=== PATIENT | male | born 1955 | race Caucasian/White ===

== ENCOUNTER → 2017-08-04 | Outpatient (CLI) | payer OTHER ==
[2017-08-05 14:04] LABS: Protein C (Activity) 111 % (70 - 130); Protein S (Activity) 98 % (65 - 140)
== END | disposition home or self-care (01) ==
LOC: LABWHC1 14:36
PROVIDERS: ATTEND Internal Medicine Critical Care Medicine
DX: I26.99 Other pulmonary embolism without acute cor pulmonale (principal)
CPT/HCPCS: 36415; 81240; 81241; 85301; 85303; 85306; 85613; 85730; 86147

== ENCOUNTER → 2020-08-02 | Outpatient (CLI) | payer OTHER ==
--- NOTE | 2020-08-03 03:09 | MR ---
EXAMINATION TYPE: MR knee LT wo con DATE OF EXAM: 08/02/2020 COMPARISON: None HISTORY: Lt knee pain x 2 months Multiplanar multiecho imaging of the left knee was performed without contrast. There is moderate knee joint effusion. The anterior and posterior cruciate ligaments are intact. Ther e is some mild increased signal within the posterior cruciate ligament consistent with partial tear. There is narrowing of the medial joint space. There is significant thinning of the medial meniscus. T here is complex tear of the posterior horn of the medial meniscus. There is abnormal increased signal on the T2 images on both sides of the medial joint space consisten t with bone edema and bone bruise. The patella is intact. There is horizontal tear in the anterior po sterior horns of the lateral meniscus. There is subcutaneous edema around the knee. There is poplitea l cyst that measures 2.5 x 1.3 cm. The collateral ligaments are intact. IMPRESSION: Complex tear of the anterior and posterior horns of the medial meniscus with medial joint space narro wing and osteoarthritis. Bone bruise on both sides of the medial joint space. Subcutaneous edema arou nd the knee joint. Knee joint effusion and popliteal cyst. Partial tear of the posterior cruciate ligament. Horizontal tear of the entire lateral meniscus.
== END | disposition home or self-care (01) ==
LOC: RADMRIMAIN 18:13
PROVIDERS: ATTEND Orthopaedic Surgery
DX: S83.232A Complex tear of medial meniscus, current injury, left knee, initial encounter (principal); M17.12 Unilateral primary osteoarthritis, left knee; S80.02XA Contusion of left knee, initial encounter; M25.862 Other specified joint disorders, left knee; M71.22 Synovial cyst of popliteal space [Baker], left knee; S83.282A Other tear of lateral meniscus, current injury, left knee, initial encounter; S83.522A Sprain of posterior cruciate ligament of left knee, initial encounter

== ENCOUNTER 2020-10-18 23:48 | Inpatient (IN) | payer OTHER ==
--- NOTE | 2020-10-19 00:26 | ED ---
General Adult HPI - General Chief complaint: Extremity Problem,Nontraumatic Stated complaint: Blood clots Time Seen by Provider: 10/18/20 23:52 Source: patient Mode of arrival: EMS Limitations: no limitations - History of Present Illness Initial comments: This patient is a 64-year-old man who arrives here as a transfer from [facility]. The patient had gone to the other facility after he noticed that he was feeling short of breath when he went to go to physical therapy appointment around 11 AM today. The patient states she is feeling abno rmally short of breath so he went to the hospital and there was found to have left leg DVT and bilateral pulmonary embolism. Patient relates that over the prior day he had had a what felt like a charley horse in his left calf. He had tried stretching it but didn't really have much relief. The patient does relate that he had pulmonary embolus around 4-5 years ago and had taken 6 months of anticoagulation without further complication and then that was stopped. Currently the patient states that his breathing seems okay. Patient denies chest pain but states that it does occasionally feel like he has to cough. No hemoptysis. No palpitations noted. Onset/Timin -: hour(s) Location: left, lower extremity Quality: dull Consistency: constant Improves with: none Worsens with: movement Associated Symptoms: cough, shortness of breath - Related Data Home Medications Medication Instructions Recorded Confirmed lisinopriL [Zestril] 10 mg PO DAILY 07/06/16 07/11/16 Albuterol Sulfate [Proventil Hfa] 2 puff INHALATION RT-Q4H PRN MDD 07/11/16 07/11/16 +SCHEDULED DOSES Albuterol Sulfate [Proventil Hfa] 2 puff INHALATION RT-Q6H 07/11/16 07/11/16 Previous Rx's Medication Instructions Recorded Budesonide-Formot 160-4.5 Mcg 2 puff INHALATION RT-BID #1 inh 07/08/16 [Symbicort 160-4.5 Mcg Inhaler] Enoxaparin [Lovenox] 120 mg SQ Q12H #10 syringe 07/15/16 ALPRAZolam [Xanax] 0.25 mg PO TID PRN #20 tab 07/17/16 HYDROcodone/APAP 5-325MG [[place] 1 each PO Q6H PRN #20 tab 07/17/16 5-325] Multivitamins, Thera [Multivitamin 1 each PO DAILY@1200 #30 tab 07/17/16 (formulary)] Warfarin [Coumadin] 10 mg PO DAILY #7 tab 07/17/16 methylPREDNISolone Dose Pack 4 mg PO DIRECTED #1 package 07/17/16 [Medrol Dose Pack] Allergies Allergy/AdvReac Type Severity Reaction Status Date / Time amoxicillin Allergy Rash/Hives Verified 10/19/20 00:06 iodine Allergy Anaphylaxis Verified 07/11/16 19:20 Review of Systems ROS Statement: Those systems with pertinent positive or pertinent negative responses have been documented in the HPI. ROS Other: All systems not noted in ROS Statement are negative. Constitutional: Denies: fever, chills, weakness ENT: Denies: congestion Respiratory: Reports: as per HPI, cough, dyspnea. Denies: wheezes, hemoptysis Cardiovascular: Reports: dyspnea on exertion. Denies: chest pain, palpitations, orthopnea, edema, syncope Gastrointestinal: Denies: abdominal pain, nausea, vomiting Genitourinary: Denies: dysuria, hematuria Musculoskeletal: Reports: as per HPI, myalgia (Left calf). Denies: back pain Skin: Reports: rash (Patient has bilateral lower extremity rash believed to be reaction to antibiotics he had taken for dental pain) Neurological: Denies: headache, weakness, numbness, paresthesias Hematological/Lymphatic: Denies: easy bleeding Past Medical History Past Medical History: Deep Vein Thrombosis (DVT), Hypertension, Rheumatoid Arthritis (RA) Additional Past Medical History / Comment(s): Recent admission for left lower lobe pneumonia, rheumatoid arthritis, hypertension, obesity, pulmonary embolisms, prostate CA, UTI, herniated dics History of Any Multi-Drug Resistant Organisms: None Reported Past Surgical History: Appendectomy, Cholecystectomy, Tonsillectomy Additional Past Surgical History / Comment(s): 2010 colonscopy w/polyps removed Past Anesthesia/Blood Transfusion Reactions: No Reported Reaction Past Psychological History: No Psychological Hx Reported Smoking Status: Never smoker Past Alcohol Use History: Occasional Past Drug Use History: None Reported - Past Family History Father Family Medical History: No Reported History General Exam Limitations: no limitations General appearance: alert, in no apparent distress Head exam: Present: atraumatic, normocephalic Eye exam: Present: normal appearance. Absent: scleral icterus, conjunctival injection Neck exam: Present: normal inspection, full ROM Respiratory exam: Present: normal lung sounds bilaterally. Absent: respiratory distress, wheezes, rales, rhonchi, stridor, accessory muscle use, decreased breath sounds, prolonged expiratory Cardiovascular Exam: Present: regular rate, normal rhythm, normal heart sounds. Absent: systolic murmur, diastolic murmur, rubs, gallop GI/Abdominal exam: Present: soft. Absent: distended, tenderness, guarding, rebound, rigid, mass, pulsatile mass, hernia Extremities exam: Present: normal inspection, normal capillary refill, pedal edema (Left calf is minimally enlarged compared with the right), calf tenderness Back exam: Present: normal inspection. Absent: CVA tenderness (R), CVA tenderness (L) Neurological exam: Present: alert Skin exam: Present: warm, dry, intact, normal color, rash (Macular rash bilateral lower extremities). Absent: cyanosis, diaphoretic, erythema, urticaria, vesicles, petechiae, pallor, mottled, abrasion Course Vital Signs 10/18/20 10/19/20 23:54 00:00 Temperature 97.8 F Pulse Rate 86 Respiratory 16 18 Rate Blood Pressure 162/91 O2 Sat by Pulse 96 Oximetry Medical Decision Making - Lab Data Result diagrams: 10/19/20 01:02 Disposition Clinical Impression: Deep vein thrombosis (DVT) of lower extremity, Pulmonary embolism Disposition: ADMITTED IP TO THIS [facility] Condition: Good
[2020-10-19] MEDS ORDERED: HEPARIN SODIUM,PORCINE 5,000 UNIT/ML 1 ML VIAL IV PRN (00:31)
[2020-10-19] MEDS ORDERED: HYDROmorphone 0.5 MG/0.5 ML SYRINGE IVP PRN (00:32)
[2020-10-19] MEDS ORDERED: ONDANSETRON 4 MG/2 ML VIAL IVP PRN (00:32)
[2020-10-19] MEDS ORDERED: NALOXONE 0.4 MG/ML 1 ML VIAL IV PRN (00:32)
[2020-10-19] MEDS ORDERED: MORPHINE SULFATE 4 MG/ML SYRINGE IV PRN (00:32)
[2020-10-19] MEDS ORDERED: ALPRAZolam 0.25 MG TAB PO PRN (00:35)
[2020-10-19] MEDS ORDERED: ALBUTEROL NEBULIZED 2.5 MG/3 ML INHALATION PRN (00:35)
[2020-10-19 01:38] LABS: Basophils % (A) 0 %; Eosinophils # (A) 0.2 k/uL (0-0.7); Eosinophils % (A) 1 %; HCT 43.9 % (39.0-53.0); Lymphocytes # (A) 1.1 k/uL (1.0-4.8); Lymphocytes % (A) 8 %; MCH 30.9 pg (25.0-35.0); MCHC 34.1 g/dL (31.0-37.0); MCV 90.6 fL (80.0-100.0); Mean Platelet Volume 7.1; Monocytes # (A) 0.3 k/uL (0-1.0); Monocytes % (A) 2 %; Neutrophils # (A) 12.5 k/uL (1.3-7.7); Neutrophils % (A) 89 %; Platelet Count 195 k/uL (150-450); RBC 4.84 m/uL (4.30-5.90); RDW 12.7 % (11.5-15.5); WBC 14.2 k/uL (3.8-10.6)
[2020-10-19 01:43] LABS: Partial Thromboplastin Time 53.3 sec (22.0-30.0); Prothrombin Time 10.6 sec (9.0-12.0)
[2020-10-19] MEDS: HEPARIN SOD,PORK IN 0.45% NACL 25,000 UNIT in 0.45% NACL 1 250ML.BAG IV SCH ×2 (02:00→17:05)
[2020-10-19] MEDS: SODIUM CHLORIDE 0.9% 1,000 ML IV SCH (02:00)
--- NOTE | 2020-10-19 04:30 | P.HPIM ---
History of Present Illness H&P Date: 10/19/20 Chief Complaint: PE 64 year old male with history of VTE 4-5 years ago , unknown underlying cause, hypertension patient transferred to our facility from [facility] , after being diagnosed with left lower extremity DVT and multiple PEs. Patient reports that he was at his baseline status of health he was recently started on antibiotics to treat some dental infection and UTI he had 2 pills left of his amoxicillin when he broke into a rash today described it as petechial rash and felt warm denies any hives denies any wheezing denies any trouble swallowing or breathing. [facility] to get evaluated as he was having some shortness of breath associated with this rash he was worried that he is having an ALLERGIC reaction. And then upon further history taking he reported some left leg pain and history of venous thromboembolic some along with recent diagnosis of prostate cancer Marshall 6 which currently being actively surveillance. 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 Admits to sit entry life over the past 3 weeks as he took time off and trying to get some rest waiting for surgery and otherwise denies any injuries denies any swelling or pain to the left lower extremity Review of Systems Pertinent positives as noted in HPI. All other systems were reviewed and are negative Past Medical History Past Medical History: Deep Vein Thrombosis (DVT), Hypertension, Rheumatoid Arthritis (RA) Additional Past Medical History / Comment(s): Recent admission for left lower lobe pneumonia, rheumatoid arthritis, hypertension, obesity, pulmonary embolisms, prostate CA, UTI, herniated dics History of Any Multi-Drug Resistant Organisms: None Reported Past Surgical History: Appendectomy, Cholecystectomy, Tonsillectomy Additional Past Surgical History / Comment(s): 2009 colonscopy w/polyps removed Past Anesthesia/Blood Transfusion Reactions: No Reported Reaction Past Psychological History: No Psychological Hx Reported Smoking Status: Never smoker Past Alcohol Use History: Occasional Past Drug Use History: None Reported - Past Family History Father Family Medical History: No Reported History Medications and Allergies Home Medications Medication Instructions Recorded Confirmed Type lisinopriL [Zestril] 10 mg PO DAILY 07/06/16 07/11/16 History Budesonide-Formot 160-4.5 Mcg 2 puff INHALATION RT-BID #1 inh 07/08/16 07/11/16 Rx [Symbicort 160-4.5 Mcg Inhaler] Albuterol Sulfate [Proventil Hfa] 2 puff INHALATION RT-Q4H PRN MDD 07/11/16 07/11/16 History +SCHEDULED DOSES Albuterol Sulfate [Proventil Hfa] 2 puff INHALATION RT-Q6H 07/11/16 07/11/16 History Enoxaparin [Lovenox] 120 mg SQ Q12H #10 syringe 07/15/16 Rx ALPRAZolam [Xanax] 0.25 mg PO TID PRN #20 tab 07/17/16 Rx HYDROcodone/APAP 5-325MG [[place] 1 each PO Q6H PRN #20 tab 07/17/16 Rx 5-325] Multivitamins, Thera [Multivitamin 1 each PO DAILY@1200 #30 tab 07/17/16 Rx (formulary)] Warfarin [Coumadin] 10 mg PO DAILY #7 tab 07/17/16 Rx methylPREDNISolone Dose Pack 4 mg PO DIRECTED #1 package 07/17/16 Rx [Medrol Dose Pack] Allergies Allergy/AdvReac Type Severity Reaction Status Date / Time amoxicillin Allergy Rash/Hives Verified 10/19/20 00:06 iodine Allergy Anaphylaxis Verified 07/11/16 19:20 Physical Exam Vitals: Vital Signs Temp Pulse Resp BP Pulse Ox 10/18/20 23:54 97.8 F 86 16 162/91 96 Intake and Output 10/18/20 10/18/20 10/19/20 14:59 22:59 06:59 Other: Weight 117.934 kg Constitutional: No acute distress, conversant, pleasant Eyes: Anicteric sclerae, moist conjunctiva, Pupils equal round reactive to light ENMT: NC/AT Oropharynx clear, no erythema, no exudates Neck: Supple, FROM, no masses, or JVD No carotid bruits No thyromegaly Lungs: Clear to auscultation Clear to percussion Normal respiratory effort, no accessory muscle use Cardiovascular: Heart regular in rate and rhythm, No murmurs, gallops, or rubs No peripheral edema Abdominal: Soft Nontender, no guarding, rebound or rigidity Abdomen moving with respiration Normoactive bowel sounds No hepatomegaly, No splenomegaly No palpable mass No abdominal wall hernia noted Skin: Petechial rash nonblanching over bilateral lower extremities abdomen and back, otherwise Normal temperature, tone, texture, turgor Extremities: No digital cyanosis No clubbing Pedal pulses intact and symmetrical Radial pulses intact and symmetrical No calf tenderness Psychiatric: Alert and oriented to person, place and time Appropriate affect fair judgement Neuro Muscles Strength 5/5 in all 4 extremities Sensation to light touch grossly present throughout Cranial nerves II-XII grossly intact No focal sensory deficits Lymphatics: no palpable cervical or supraclavicular , or inguinal lymph nodes Results CBC & Chem 7: 10/19/20 01:02 Labs: Abnormal Lab Results - Last 24 Hours (Table) 10/19/20 10/19/20 Range/Units 01:02 01:02 WBC 14.2 H (3.8-10.6) k/uL Neutrophils # 12.5 H (1.3-7.7) k/uL APTT 53.3 H (22.0-30.0) sec Assessment and Plan Assessment: Venous thromboembolism with acute DVT and PE with history of venous thromboembolism Patient was started on heparin drip He is a candidate for lifelong blood thinners Monitor blood level Monitor PTT Consider appropriate options for lifelong anticoagulation Chronic conditions Hypertension, resume home meds Prostate cancer Marshall 6 follow-up outpatient Low back pain continue with pain control Arthritis of the left knee Preformed a thorough record review from recent hospitalization at [facility] where he was diagnosed with venous thromboembolism CODE STATUS: Full code DVT prophylaxis: On heparin drip for PE Discussed with: Patient, ER, Anticipated length of stay > than [address]: Home A total of 75 minutes was spent on the care of this complex patient more than 50% of the time was spent in counseling and care coordination.
[2020-10-19] MEDS: SYMBICORT 160-4.5 MCG INHALER INHALATION SCH ×2 (08:07→19:51)
[2020-10-19 10:09] LABS: African American GFR (CKD) >90 (>60 ml/min/1.73 sqM); Anion Gap 6 mmol/L; Blood Urea Nitrogen 22 mg/dL (9-20); Calcium 8.9 mg/dL (8.4-10.2); Carbon Dioxide 28 mmol/L (22-30); Chloride 109 mmol/L (98-107); Glucose 110 mg/dL (74-99); Non-African American GFR(CKD) >90 (>60 ml/min/1.73 sqM); Potassium 3.3 mmol/L (3.5-5.1); Sodium 143 mmol/L (137-145)
[2020-10-19] MEDS: FAMOTIDINE 20 MG TAB PO SCH ×2 (10:39→20:20)
[2020-10-19] MEDS: lisinopriL 10 MG TAB PO SCH (10:39)
[2020-10-19] MEDS: APIXABAN 5 MG TAB PO SCH ×2 (14:07→20:26)
--- NOTE | 2020-10-19 15:38 | P.PN ---
Progress Note - Text Progress Note Date: 10/19/20 Hospitalist Interval Note Patient is a 64-year-old male with a history of prior DVT and pulmonary embolism, rheumatoid arthritis, hypertension, obesity, and prostate cancer who initially presented to [facility] with complaints of shortness of breath and left calf pain. There he underwent extensive evaluation with a CT of the chest which ultimately showed multiple pulmonary emboli. He also underwent venous duplex ultrasound which showed a left lower sternal acute DVT. He was subsequently started on heparin drip and transferred to our facility. On arrival his vital signs within normal limits and he was satting 96% on room air. Initial laboratory analysis showed a slightly elevated white blood cell count 14.2. Troponin was mildly elevated at 0.80 and was trended and remained down trending. This was determined to be secondary to strain from his pulmonary embolism. He is very anxious to undergo left total knee arthroplasty secondary to severe arthritis and has been off of work for the last several weeks due to his pain. We discussed risks and benefits of undergoing the procedure at this point in time and he understands the procedure will need to be delayed. He will follow-up with hematology oncology regarding timing of the procedure and possible options for having this done earlier. He was transitioned from heparin drip to Eliquis, provide with co-pay card as well as a free one month supply. Patient seen and examined at bedside. He denies any chest pain, no shortness of breath, no nausea, no vomiting, Pain is better. Vital signs reviewed General: non toxic, no distress, appears at stated age Derm: warm, dry Head: atraumatic, normocephalic, symmetric Eyes: EOMI, no lid lag, anicteric sclera Mouth: no lip lesion, mucus membranes moist Cardiovascular: S1S2 reg, no murmur, positive posterior tibial pulse bilateral, Lungs: CTA bilateral, no rhonchi, no rales , no accessory muscle use Abdominal: soft, nontender to palpation, no guarding, no appreciable organomegaly Ext: no gross muscle atrophy, no edema, no contractures Neuro: CN II-XI grossly intact, no focal neuro deficits Psych: Alert, oriented, appropriate affect Assessment/Plan: Bilateral pulmonary embolism with left lower extremity DVT Mild troponin elevation, secondary to PE and not indicative of acute conorary syndrome Hypokalemia Prostate Cancer- Grade and on monitoring program Rheumoatoid arthritis D/W patient and family over the phone. Plan is for taras on discharge, outpatient establishment with heme/onc regarding timing of surgery. Need for delay of surgery. That he will need life long anticoagulation. This is an update note for patient , for full note on 10/19 see H and P. There is no charge associated with this note.
[2020-10-19] MEDS ORDERED: POTASSIUM CHLORIDE ER 20 MEQ TAB.ER PO STA (15:48)
[2020-10-19] MEDS: HYDROcodone/APAP 5-325MG 1 EACH TAB PO PRN (17:03)
[2020-10-20] MEDS: HYDROcodone/APAP 5-325MG 1 EACH TAB PO PRN ×3 (00:14→20:10)
[2020-10-20] MEDS ORDERED: SIMETHICONE 80 MG CHEWABLE PO STA (00:35)
[2020-10-20 07:47] LABS: HCT 37.5 % (39.0-53.0); HGB 12.8 gm/dL (13.0-17.5); MCH 31.7 pg (25.0-35.0); MCHC 34.1 g/dL (31.0-37.0); MCV 92.9 fL (80.0-100.0); Mean Platelet Volume 6.6; Platelet Count 179 k/uL (150-450); RBC 4.04 m/uL (4.30-5.90); RDW 13.1 % (11.5-15.5); WBC 12.5 k/uL (3.8-10.6)
[2020-10-20] MEDS: SYMBICORT 160-4.5 MCG INHALER INHALATION SCH ×2 (09:25→21:41)
[2020-10-20] MEDS: lisinopriL 10 MG TAB PO SCH (09:52)
[2020-10-20] MEDS: FAMOTIDINE 20 MG TAB PO SCH ×2 (09:52→20:10)
[2020-10-20] MEDS: APIXABAN 5 MG TAB PO SCH ×2 (09:52→20:10)
[2020-10-20 09:59] LABS: Albumin 3.6 g/dL (3.80-4.90); Anion Gap 2.9 mmol/L (4.00-12.00); BUN/Creat Ratio 28.89 Ratio (12.00-20.00); Calcium 8.8 mg/dL (8.7-10.3); Carbon Dioxide 31.1 mmol/L (21.6-31.8); Globulin 1.8 g/dL (1.6-3.3); Non-African American GFR(CKD) 90.6 (60.0-200.0); Potassium 4.2 mmol/L (3.5-5.5); Total Bilirubin 0.6 mg/dL (0.2-1.2); Total Protein 5.4 g/dL (6.2-8.2)
[2020-10-20] MEDS: SODIUM CHLORIDE 0.9% 1,000 ML IV SCH (10:25)
[2020-10-20] MEDS: amLODIPine 5 MG TAB PO SCH (11:45)
[2020-10-20 11:46] LABS: HGB 12.6 gm/dL (13.0-17.5); MCH 30.6 pg (25.0-35.0); MCHC 33.1 g/dL (31.0-37.0); MCV 92.3 fL (80.0-100.0); Mean Platelet Volume 6.5; Platelet Count 177 k/uL (150-450); RBC 4.12 m/uL (4.30-5.90); WBC 12.3 k/uL (3.8-10.6)
--- NOTE | 2020-10-20 14:12 | P.CONS ---
History of Present Illness - Reason for Consult Consult date: 10/20/20 Multiple PE Requesting physician: Mary Allison - Chief Complaint LLE Pain - History of Present Illness Mr. Castro is a pleasant 64-year old male patient with known history of Bilateral PE and DVTs in 2015, recent diagnosis of prostate cancer with prostatectomy 02/2020, rheumatoid arthiritis, hypertension, and obesity. He initially presented to outside hospital for left leg (calf) pain and persistent shortness of breath. Upon evaluation at [place] revvealed multiple Bilateral PEs, as well as, LE Venous doppler revealing Left Lower extremity acute DVT. (June 2016 RLE DVT). Apparently been in preparation for left total knee arthroplasty due to pain. He was transferred here and anticoagulation initially was started with heparin drip, and now he is being treated with Eliquis. Patient is feeling ok. He has complaints of paresthesias left arm and thumb pointer finger. He states he believes he herniated back, has had MRI of lower spine, although not T spine. Prostate cancer is on surveillance christopher 6 no hormone therapy. Continued monitoring of PSA. He understands lifelong anticoagulation is recommended. He is concerned about left knee surgery as he is unable to work with current pain and imbolity. Review of Systems All systems: negative Constitutional: Reports as per HPI Past Medical History Past Medical History: Deep Vein Thrombosis (DVT), Hypertension, Rheumatoid Arthritis (RA) Additional Past Medical History / Comment(s): Recent admission for left lower lo be pneumonia, rheumatoid arthritis, hypertension, obesity, pulmonary embolisms, prostate CA, UTI, herniated dics prostate CA History of Any Multi-Drug Resistant Organisms: None Reported Past Surgical History: Appendectomy, Cholecystectomy, Tonsillectomy Additional Past Surgical History / Comment(s): 2009 colonscopy w/polyps removed Past Anesthesia/Blood Transfusion Reactions: No Reported Reaction Past Psychological History: No Psychological Hx Reported Smoking Status: Never smoker Past Alcohol Use History: Occasional Past Drug Use History: None Reported - Past Family History Father Family Medical History: No Reported History Medications and Allergies Home Medications Medication Instructions Recorded Confirmed Type Apixaban [Eliquis Starter Pack 0 mg PO DIRECTED 30 Days #1 pack 10/19/20 Rx (for VTE)] Aspirin EC [Ecotrin] 325 mg PO BID 10/19/20 10/19/20 History Hydrochlorothiazide 12.5 mg PO DAILY 10/19/20 10/19/20 History [hydroCHLOROthiazide] Ibuprofen [Motrin Ib] 200 - 600 mg PO Q8H PRN 10/19/20 10/19/20 History Losartan Potassium [Cozaar] 50 mg PO DAILY 10/19/20 10/19/20 History Multivitamins, Thera [Multivitamin 1 tab PO DAILY 10/19/20 10/19/20 History (formulary)] [place]-3 Fatty Acids/Fish Oil [Fish 1 cap PO DAILY 10/19/20 10/19/20 History Oil 1,000 mg Softgel] Turmeric Root Extract [Turmeric] 500 mg PO DAILY 10/19/20 10/19/20 History Zinc 100 mg PO DAILY 10/19/20 10/19/20 History amLODIPine [Norvasc] 5 mg PO DAILY 10/19/20 10/19/20 History Allergies Allergy/AdvReac Type Severity Reaction Status Date / Time amoxicillin Allergy Rash/Hives Verified 10/19/20 09:53 iodine Allergy Anaphylaxis Verified 10/19/20 09:53 Physical Exam Vitals: Vital Signs Temp Pulse Pulse Resp BP BP Pulse Ox 10/20/20 13:02 98.4 F 52 L 16 135/75 96 10/20/20 08:00 75 18 127/85 94 L 10/20/20 00:17 97.9 F 83 16 133/75 96 10/19/20 17:00 98.1 F 86 18 121/86 100 10/19/20 14:12 98.9 F 90 18 137/78 97 Intake and Output 10/19/20 10/20/20 10/20/20 22:59 06:59 14:59 Intake Total 200 Balance 200 Intake: Oral 200 - Constitutional General appearance: cooperative, obese - EENT Eyes: EOMI, PERRLA ENT: NA/AT, normal oropharynx - Neck Neck: normal ROM - Respiratory Respiratory: bilateral: diminished - Cardiovascular Rhythm: regular Heart sounds: normal: S1, S2 leg Peripheral Edema: left: 2+ - Gastrointestinal General gastrointestinal: normal bowel sounds, soft - Integumentary Integumentary: pale - Neurologic Neurologic: CNII-XII intact - Musculoskeletal Weakness due to favoring left leg, knee from need of surgery for arthritis Musculoskeletal: generalized weakness - Psychiatric Psychiatric: A&O x's 3, appropriate affect, intact judgment & insight Results CBC & Chem 7: 10/20/20 11:30 10/20/20 06:12 Labs: Abnormal Lab Results - Last 24 Hours (Table) 10/20/20 10/20/20 10/20/20 Range/Units 06:12 06:12 07:07 WBC 12.5 H (3.8-10.6) k/uL RBC 4.04 L (4.30-5.90) m/uL Hgb 12.8 L (13.0-17.5) gm/dL Hct 37.5 L (39.0-53.0) % Anion Gap 2.90 L (4.00-12.00) mmol/L BUN/Creatinine Ratio 28.89 H (12.00-20.00) Ratio Troponin I 0.050 H* (0.000-0.034) ng/mL Total Protein 5.4 L (6.2-8.2) g/dL Albumin 3.60 L (3.80-4.90) g/dL 10/20/20 Range/Units 11:30 WBC 12.3 H (3.8-10.6) k/uL RBC 4.12 L (4.30-5.90) m/uL Hgb 12.6 L (13.0-17.5) gm/dL Hct 38.0 L (39.0-53.0) % Anion Gap (4.00-12.00) mmol/L BUN/Creatinine Ratio (12.00-20.00) Ratio Troponin I (0.000-0.034) ng/mL Total Protein (6.2-8.2) g/dL Albumin (3.80-4.90) g/dL CT scan - chest: report reviewed Venous US: report reviewed Assessment and Plan (1) Pulmonary embolism Narrative/Plan: - Second thrombolic Life event. Appears first was unprovoked. Life long ac therapy. - With decreased mobility secondary to left leg and pain this is consistent with provoked clot (also recent diagnosis of prostate cancer) - Usually would recommend one year on AC therapy prior to surgical knee replacement although patient feels without Left knee replacement risks and quality of life are diminished. Will discuss further with hematology and Dr. Winters regarding weighing risk and benefit of heparin bridge to surgery and quickly return on blood thinners post operatively. Current Visit: Yes Status: Acute Code(s): I26.99 - OTHER PULMONARY EMBOLISM WITHOUT ACUTE COR PULMONALE SNOMED Code(s): 51360174 (2) Deep vein thrombosis (DVT) of lower extremity Current Visit: Yes Status: Acute Code(s): I82.409 - ACUTE EMBOLISM AND THOMBOS UNSP DEEP VN UNSP LOWER EXTREMITY SNOMED Code(s): 462897086 (3) Leukocytosis, unspecified Current Visit: Yes Status: Acute Code(s): D72.829 - ELEVATED WHITE BLOOD CELL COUNT, UNSPECIFIED SNOMED Code(s): 302980705 (4) Rheumatoid arthritis Current Visit: Yes Status: Acute Code(s): M06.9 - RHEUMATOID ARTHRITIS, UNSPECIFIED SNOMED Code(s): 74331418 (5) Pain of knee and lower leg Current Visit: Yes Status: Acute Code(s): M25.569 - PAIN IN UNSPECIFIED KNEE; M79.669 - PAIN IN UNSPECIFIED LOWER LEG SNOMED Code(s): 35123085 (6) Prostate cancer Narrative/Plan: With new thrombolic even recheck PSA Current Visit: Yes Status: Acute Code(s): C61 - MALIGNANT NEOPLASM OF PROSTATE SNOMED Code(s): 103494173 Plan: Thank you for allowing us to follow in the care of your patient
--- NOTE | 2020-10-20 17:04 | P.PN ---
Subjective Progress Note Date: 10/20/20 (delayed charting seen at 1130) Principal diagnosis: shortness of breath Patient is a 64-year-old male with a history of prior DVT and pulmonary embolism, rheumatoid arthritis, hypertension, obesity, and prostate cancer s/p prostectomy who initially presented to [facility] with complaints of shortness of breath and left calf pain. There he underwent extensive evaluation with a CT of the chest which ultimately showed multiple pulmonary emboli. He also underwent venous duplex ultrasound which showed a left lower sternal acute DVT. He was subsequently started on heparin drip and transferred to our facility. On arrival his vital signs within normal limits and he was satting 96% on room air. Initial laboratory analysis showed a slightly elevated white blood cell count 14.2. Troponin was mildly elevated at 0.80 and was trended and remained down trending. This was determined to be secondary to strain from his pulmonary embolism. He is very anxious to undergo left total knee arthroplasty secondary to severe arthritis and has been off of work for the last several weeks due to his pain. We discussed risks and benefits of undergoing the procedure at this point in time and he understands the procedure will need to be delayed. His hemoglobin dropped from morning of 10/20 and he will continue to be monitored. Patient seen and examined at bedside. He denies any shortness of breath, no calf pain, no nausea, no vomiting, no chest discomfort General: non toxic, no distress, appears at stated age Derm: warm, dry Head: atraumatic, normocephalic, symmetric Eyes: EOMI, no lid lag, anicteric sclera Mouth: no lip lesion, mucus membranes moist Cardiovascular: S1S2 reg, no murmur, positive posterior tibial pulse bilateral, Lungs: CTA bilateral, no rhonchi, no rales , no accessory muscle use Abdominal: soft, nontender to palpation, no guarding, no appreciable organomegaly Ext: no gross muscle atrophy, no edema, no contractures Neuro: CN II-XI grossly intact, no focal neuro deficits Psych: Alert, oriented, appropriate affect Assessment: Bilateral pulmonary embolism with left lower extremity DVT Mild troponin elevation, secondary to PE and not indicative of acute coronary syndrome Anemia Prostate Cancer- Grade and on monitoring program Rheumoatoid arthritis Hypokalemia, resolved Plan: Continue with Eliquis for treatment of his pulmonary embolism and left lower study DVT. Continue to monitor hemoglobin. Consult hematology and oncology. Echocardiogram in a.m. Anticipate home tomorrow if hemoglobin stable. DVT prophylaxis: On Eliquis Discussed with: Patient, nursing Anticipated discharge: in AM Anticipated discharge place: home A total of 30 minutes was spent on the care of this complex patient more than 50% of the time was spent in counseling and care coordination. Objective - Vital Signs Vital signs: Vital Signs Temp 98.4 F 10/20/20 13:02 Pulse 52 L 10/20/20 13:02 Resp 16 10/20/20 13:02 BP 135/75 10/20/20 13:02 Pulse Ox 96 10/20/20 13:02 Intake & Output 10/19/20 10/20/20 10/20/20 18:59 06:59 18:59 Intake Total 187.16 200 Balance 187.16 200 Weight 117.934 kg Intake: Intake, IV Titration 187.16 Amount Heparin Sod,Pork in 0.45% 187.16 NaCl 25,000 unit In 0.45 % NaCl 1 250ml.bag @ 18 UNITS/KG/HR 21.228 mls/hr IV .[id number] [facility] Rx#: [id number] Oral 200 Other: # Voids 1 - Labs CBC & Chem 7: 10/20/20 11:30 10/20/20 06:12 Labs: Abnormal Lab Results - Last 24 Hours (Table) 10/20/20 10/20/20 10/20/20 Range/Units 06:12 06:12 07:07 WBC 12.5 H (3.8-10.6) k/uL RBC 4.04 L (4.30-5.90) m/uL Hgb 12.8 L (13.0-17.5) gm/dL Hct 37.5 L (39.0-53.0) % Anion Gap 2.90 L (4.00-12.00) mmol/L BUN/Creatinine Ratio 28.89 H (12.00-20.00) Ratio Troponin I 0.050 H* (0.000-0.034) ng/mL Total Protein 5.4 L (6.2-8.2) g/dL Albumin 3.60 L (3.80-4.90) g/dL 10/20/20 Range/Units 11: WBC 12.3 H (3.8-10.6) k/uL RBC 4.12 L (4.30-5.90) m/uL Hgb 12.6 L (13.0-17.5) gm/dL Hct 38.0 L (39.0-53.0) % Anion Gap (4.00-12.00) mmol/L BUN/Creatinine Ratio (12.00-20.00) Ratio Troponin I (0.000-0.034) ng/mL Total Protein (6.2-8.2) g/dL Albumin (3.80-4.90) g/dL
--- NOTE | 2020-10-20 18:36 | XR ---
EXAMINATION TYPE: XR cervical spine comp DATE OF EXAM: 10/20/2020 COMPARISON: NONE HISTORY: Neck pain TECHNIQUE: 5 views FINDINGS: Cervical vertebra have normal alignment. There is anterior spurring throughout the cervical spine. There is C6-7 disc space narrowing. Atlantoaxial facet joint is normal. There are no cervical ribs. There is uncovertebral spurring and bilateral C6-7 neural foraminal impingement. 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 No fracture.
--- NOTE | 2020-10-20 18:38 | XR ---
EXAMINATION TYPE: XR thoracic spine 2V DATE OF EXAM: 10/20/2020 COMPARISON: NONE HISTORY: Back pain TECHNIQUE: 3 views FINDINGS: The thoracic vertebra have normal alignment. There is anterior spurring in the lower thorac ic spine. There is no paraspinal mass. Posterior elements are intact. There is no compression fractur e. IMPRESSION: Spondylotic changes in the thoracic spine. No acute fracture seen.
[2020-10-21] MEDS: SODIUM CHLORIDE 0.9% 1,000 ML IV SCH (03:02)
[2020-10-21] MEDS: SYMBICORT 160-4.5 MCG INHALER INHALATION SCH (07:31)
[2020-10-21 07:46] VITALS: RESP 18
[2020-10-21 08:02] LABS: HCT 38.7 % (39.0-53.0); HGB 12.6 gm/dL (13.0-17.5); MCH 30.3 pg (25.0-35.0); MCHC 32.6 g/dL (31.0-37.0); MCV 93.1 fL (80.0-100.0); Mean Platelet Volume 6.5; Platelet Count 203 k/uL (150-450); RBC 4.15 m/uL (4.30-5.90); RDW 13.3 % (11.5-15.5); WBC 10.8 k/uL (3.8-10.6)
[2020-10-21] MEDS: FAMOTIDINE 20 MG TAB PO SCH (08:35)
[2020-10-21] MEDS: amLODIPine 5 MG TAB PO SCH (08:35)
[2020-10-21] MEDS: APIXABAN 5 MG TAB PO SCH (08:38)
[2020-10-21] MEDS: HYDROcodone/APAP 5-325MG 1 EACH TAB PO PRN (08:47)
[2020-10-21] MEDS ORDERED: LOSARTAN 50 MG TAB PO SCH (09:00)
[2020-10-21] MEDS ORDERED: hydroCHLOROthiazide 12.5 MG CAP PO SCH (09:00)
[2020-10-21 14:24] VITALS: BP 127/74; PULSE 59; TEMP 97.9
--- NOTE | 2020-10-21 17:14 | P.DS ---
Providers Date of admission: 10/19/20 00:35 Expected date of discharge: 10/21/20 Attending physician: Wily Mcclure MD Consults: 10/20/20 12:34 Consult Physician Routine Consulting Provider: Lawrence Hoskins Consult Reason/Comments: Multiple PE, developing anemia Do you want consulting provider notified?: Yes Primary care physician: Physician Nonstaff Hospital Course: Discharge Diagnosis: Bilateral pulmonary embolism with left lower extremity DVT Mild troponin elevation, secondary to PE and not indicative of acute coronary syndrome Anemia Prostate Cancer- Grade and on monitoring program Rheumoatoid arthritis Hypokalemia, resolved Hospital Course: Patient is a 64-year-old male with a history of prior DVT and pulmonary e mbolism, rheumatoid arthritis, hypertension, obesity, and prostate cancer s/p prostectomy who initially presented to [facility] with complaints of shortness of breath and left calf pain. There he underwent extensive evaluation with a CT of the chest which ultimately showed multiple pulmonary emboli. He also underwent venous duplex ultrasound which showed a left lower sternal acute DVT. He was subsequently started on heparin drip and transferred to our facility. On arrival his vital signs within normal limits and he was satting 96% on room air. Initial laboratory analysis showed a slightly elevated white blood cell count 14.2. Troponin was mildly elevated at 0.80 and was trended and remained down trending. This was determined to be secondary to strain from his pulmonary embolism. He is very anxious to undergo left total knee arthroplasty secondary to severe arthritis and has been off of work for the last several weeks due to his pain. We discussed risks and benefits of undergoing the procedure at this point in time and he understands the procedure will need to be delayed. His hemoglobin dropped from morning of 10/20 and he was monitored and hemoglobin remained stable. He is determined stable for discharge home. He underwent echocardiogram results are pending at time of discharge. He was seen by hematology oncology who agree with Job and will follow him in the clinic for further recommendations regarding anticoagulation. He'll need to be on lifelong anticoagulation. Patient seen and examined at bedside. Breathing is stable, no chest pain, no nausea, no vomiting Vital signs reviewed and stable. General: non toxic, no distress, appears at stated age Derm: warm, dry Head: atraumatic, normocephalic, symmetric Eyes: EOMI, no lid lag, anicteric sclera Mouth: no lip lesion, mucus membranes moist Cardiovascular: S1S2 reg, no murmur, positive posterior tibial pulse bilateral, Lungs: CTA bilateral, no rhonchi, no rales , no accessory muscle use Abdominal: soft, nontender to palpation, no guarding, no appreciable organomegaly Ext: no gross muscle atrophy, no edema, no contractures Neuro: CN II-XI grossly intact, no focal neuro deficits Psych: Alert, oriented, appropriate affect A total of 35 minutes of time were spent preparing this complex discharge summary . Patient Condition at Discharge: Good Plan - Discharge Summary Discharge Rx Participant: No New Discharge Prescriptions: New Apixaban [Eliquis Starter Pack (for VTE)] 0 mg PO DIRECTED 30 Days #1 pack Continue Multivitamins, Thera [Multivitamin (formulary)] 1 tab PO DAILY Zinc 100 mg PO DAILY Turmeric Root Extract [Turmeric] 500 mg PO DAILY [place]-3 Fatty Acids/Fish Oil [Fish Oil 1,000 mg Softgel] 1 cap PO DAILY Losartan Potassium [Cozaar] 50 mg PO DAILY amLODIPine [Norvasc] 5 mg PO DAILY Hydrochlorothiazide [hydroCHLOROthiazide] 12.5 mg PO DAILY Discontinued Ibuprofen [Motrin Ib] 200 - 600 mg PO Q8H PRN PRN Reason: Pain Aspirin EC [Ecotrin] 325 mg PO BID Discharge Medication List Apixaban [Eliquis Starter Pack (for VTE)] 0 mg PO DIRECTED 30 Days #1 pack 10/19/20 [Rx] Hydrochlorothiazide [hydroCHLOROthiazide] 12.5 mg PO DAILY 10/19/20 [History] Losartan Potassium [Cozaar] 50 mg PO DAILY 10/19/20 [History] Multivitamins, Thera [Multivitamin (formulary)] 1 tab PO DAILY 10/19/20 [History] [place]-3 Fatty Acids/Fish Oil [Fish Oil 1,000 mg Softgel] 1 cap PO DAILY 10/19/20 [History] Turmeric Root Extract [Turmeric] 500 mg PO DAILY 10/19/20 [History] Zinc 100 mg PO DAILY 10/19/20 [History] amLODIPine [Norvasc] 5 mg PO DAILY 10/19/20 [History] Follow up Appointment(s)/Referral(s): Jean-Pierre Resendez DO [Doctor of Osteopathic Medicine] - 4 Weeks Megha Sibley ANPBC [Nurse Practitioner] - 2 Weeks Nonstaff,Physician [Primary Care Provider] - 1-2 days Patient Instructions/Handouts: Pulmonary Embolism (DC) Activity/Diet/Wound Care/Special Instructions: eliquis NEW activity as tolerated heart healthy diet as tolerated Discharge Disposition: HOME SELF-CARE
--- NOTE | 2020-10-21 19:00 | P.PN ---
Subjective Progress Note Date: 10/21/20 Principal diagnosis: Acute DVT and Bilateral PEs Patient is very anxious regarding his planned left knee surgery. Unfortunately, with his acute extensive thombolic events (Also not first in life of unprovoked clots) it is not advisable to undergo surgical intervention Objective - Vital Signs Vital signs: Vital Signs Temp 97.9 F 10/21/20 14:24 Pulse 59 L 10/21/20 14:24 Resp 18 10/21/20 14:24 BP 127/74 10/21/20 14:24 Pulse Ox 98 10/21/20 14:24 Intake & Output 10/20/20 10/21/20 10/21/20 18:59 06:59 18:59 Intake Total 200 220 Balance 200 220 Intake: Intake, IV Titration 220 Amount Sodium Chloride 0.9% 1, 220 000 ml @ 20 mls/hr IV . Q24H [facility] Rx#:[id number] Oral 200 Other: Voiding Method Toilet # Voids 1 3 - Constitutional General appearance: Present: cooperative, no acute distress - EENT Eyes: Present: EOMI, PERRLA ENT: Present: NA/AT, normal oropharynx - Neck Neck: Present: normal ROM - Respiratory Respiratory: bilateral: CTA - Cardiovascular Rhythm: regular - Gastrointestinal General gastrointestinal: Present: soft - Integumentary Integumentary: Present: pale - Neurologic Neurologic: Present: CNII-XII intact, focal deficits - Musculoskeletal Musculoskeletal: Present: generalized weakness, strength equal bilaterally - Psychiatric Psychiatric: Present: A&O x's 3, appropriate affect, intact judgment & insight - Labs CBC & Chem 7: 10/21/20 06:20 10/20/20 06:12 Labs: Abnormal Lab Results - Last 24 Hours (Table) 10/21/20 Range/Units 06:20 WBC 10.8 H (3.8-10.6) k/uL RBC 4.15 L (4.30-5.90) m/uL Hgb 12.6 L (13.0-17.5) gm/dL Hct 38.7 L (39.0-53.0) % Assessment and Plan (1) Pulmonary embolism Narrative/Plan: - Second thrombolic Life event. Appears first was unprovoked. Life long ac therapy. - With decreased mobility secondary to left leg and pain this is consistent with provoked clot (also recent diagnosis of prostate cancer) - It is felt that surgical intervention for knee replacement would not outweigh risks if attempted to be performed wtihin 6 months of acute thrombus, patient was disappointed at this although understands reason. - PLan to repeat Venous Doppler in 3 months - Factor V Leiden in old blood work? Physician Attest: I have completed the full history and physical and agree with dictation, dictated as a scribe. Status: Acute Code(s): I26.99 - OTHER PULMONARY EMBOLISM WITHOUT ACUTE COR PULMONALE SNOMED Code(s): 23836656 (2) Deep vein thrombosis (DVT) of lower extremity Status: Acute Code(s): I82.409 - ACUTE EMBOLISM AND THOMBOS UNSP DEEP VN UNSP LOWER EXTREMITY SNOMED Code(s): 560354656 (3) Leukocytosis, unspecified Status: Acute Code(s): D72.829 - ELEVATED WHITE BLOOD CELL COUNT, UNSPECIFIED SNOMED Code(s): 027531852 (4) Rheumatoid arthritis Status: Acute Code(s): M06.9 - RHEUMATOID ARTHRITIS, UNSPECIFIED SNOMED Co de(s): 25739391 (5) Pain of knee and lower leg Status: Acute Code(s): M25.569 - PAIN IN UNSPECIFIED KNEE; M79.669 - PAIN IN UNSPECIFIED LOWER LEG SNOMED Code(s): 15594131 (6) Prostate cancer Status: Acute Code(s): C61 - MALIGNANT NEOPLASM OF PROSTATE SNOMED Code(s): 729510055
--- NOTE | 2020-10-22 07:04 | ECHOF ---
Referral Reason:ventricular strain MEASUREMENTS -------- HEIGHT: 185.4 cm WEIGHT: 117.9 kg BP: 150/74 IVSd: 1.1 cm (0.6 - 1.1) LVIDd: 3.9 cm (3.9 - 5.3) LVPWd: 1.4 cm (0.6 - 1.1) IVSs: 1.4 cm LVIDs: 2.4 cm LVPWs: 2.0 cm LAESV Index (A-L): 17.88 ml/m Ao Diam: 3.6 cm (2.0 - 3.7) AV Cusp: 2.4 cm (1.5 - 2.6) MV EXCURSION: 16.594 mm (> 18.000) MV EF SLOPE: 50 mm/s (70 - 150) EPSS: 0.8 cm MV E Victor Manuel: 0.71 m/s MV DecT: 175 ms MV A Victor Manuel: 0.71 m/s MV E/A Ratio: 1.01 RAP: 5.00 mmHg RVSP: 18.37 mmHg FINDINGS -------- Sinus rhythm. This was a technically difficult study with suboptimal views. The left ventricular size is normal. There is mild concentric left ventricular hypertrophy. Overa ll left ventricular systolic function is normal with, an EF between 55 - 60 %. The diastolic fillin g pattern is normal for the age of the patient 8.90. The right ventricle is normal in size. Normal LA size by volume 22+/-6 ml/m2. The right atrial size is normal. 5.0mg of Lumason was utilized for enhancement of images The aortic valve is trileaflet, and appears structurally normal. No aortic stenosis or regurgitation. The mitral valve is normal. No mitral regurgitation. Mild tricuspid regurgitation present. Right ventricular systolic pressure is normal at < 35 mmHg. The right ventricular systolic pressure, as measured by Doppler, is 18.37mmHg. The pulmonic valve was not well visualized. There is no pulmonic regurgitation present. The aortic root size is normal. IVC Not well visulized. There is no pericardial effusion. CONCLUSIONS -------- 1. This was a technically difficult study with suboptimal views. 2. There is mild concentric left ventricular hypertrophy. 3. Overall left ventricular systolic function is normal with, an EF between 55 - 60 %. 4. Normal LA size by volume 22+/-6 ml/m2. 5. The aortic valve is trileaflet, and appears structurally normal. No aortic stenosis or regurgitati on. 6. Mild tricuspid regurgitation present. 7. There is no pericardial effusion. PIN MACHINE TENDER: Tiffany Alcala RDCS
== END 2020-10-21 16:55 | disposition home or self-care (01) | DRG 176 ==
LOC: EC 23:48 → 3SCARD 10-19 00:35 → 6NMEDSUR 10-19 18:08 → 5NMEDONC 10-19 20:34
PROVIDERS: ADMIT Internal Medicine; ATTEND Internal Medicine
DX: I26.99 Other pulmonary embolism without acute cor pulmonale (principal); I82.402 Acute embolism and thrombosis of unspecified deep veins of left lower extremity; N39.0 Urinary tract infection, site not specified; C61 Malignant neoplasm of prostate; M06.9 Rheumatoid arthritis, unspecified; D64.9 Anemia, unspecified; E87.6 Hypokalemia; I10 Essential (primary) hypertension; M17.12 Unilateral primary osteoarthritis, left knee; E66.9 Obesity, unspecified; M54.5 Low back pain; R21 Rash and other nonspecific skin eruption; R79.89 Other specified abnormal findings of blood chemistry; Z68.34 Body mass index [BMI] 34.0-34.9, adult; Z79.01 Long term (current) use of anticoagulants; Z79.51 Long term (current) use of inhaled steroids; Z79.82 Long term (current) use of aspirin; Z79.899 Other long term (current) drug therapy; Z86.711 Personal history of pulmonary embolism; Z86.718 Personal history of other venous thrombosis and embolism; Z90.79 Acquired absence of other genital organ(s); Z88.0 Allergy status to penicillin; Z87.01 Personal history of pneumonia (recurrent); Z91.041 Radiographic dye allergy status; Z90.49 Acquired absence of other specified parts of digestive tract; Z90.89 Acquired absence of other organs; Z87.19 Personal history of other diseases of the digestive system; Z87.898 Personal history of other specified conditions; Z86.010 Personal history of colon polyps; Z98.890 Other specified postprocedural states
CPT/HCPCS: 72050; 72070; 80048; 80053; 84153; 84154; 84484; 85025; 85027; 85610; 85730; 93306; 96365; 96366; 99284

== ENCOUNTER → 2020-12-12 | Outpatient (CLI) | payer OTHER ==
[2020-12-12 10:11] LABS: Basophils % (A) 0 %; Eosinophils # (A) 0.1 k/uL (0-0.7); Eosinophils % (A) 1 %; HCT 43.8 % (39.0-53.0); HGB 14.2 gm/dL (13.0-17.5); Lymphocytes # (A) 1.7 k/uL (1.0-4.8); Lymphocytes % (A) 20 %; MCH 30.1 pg (25.0-35.0); MCHC 32.4 g/dL (31.0-37.0); MCV 92.8 fL (80.0-100.0); Mean Platelet Volume 6.5; Monocytes # (A) 0.5 k/uL (0-1.0); Monocytes % (A) 6 %; Neutrophils # (A) 5.8 k/uL (1.3-7.7); Neutrophils % (A) 71 %; Platelet Count 255 k/uL (150-450); RBC 4.71 m/uL (4.30-5.90); RDW 13.4 % (11.5-15.5); WBC 8.2 k/uL (3.8-10.6)
--- NOTE | 2020-12-12 10:19 | XR ---
EXAMINATION TYPE: XR chest 2V DATE OF EXAM: 12/12/2020 COMPARISON: 07/14/2016 TECHNIQUE: PA and lateral views submitted. HISTORY: Preop FINDINGS: The lungs are clear and there is no pneumothorax, pleural effusion, or focal pneumonia. Preop hyper trophic and degenerative changes spine. Arthropathy of the shoulders. Hyperinflation suggests COPD. A therosclerotic change of the aorta. IMPRESSION: 1. No acute process.
[2020-12-12 10:21] LABS: Partial Thromboplastin Time 22.9 sec (22.0-30.0); Prothrombin Time 10.4 sec (9.0-12.0)
[2020-12-12 10:29] LABS: Appearance,Urine Clear (Clear); Bilirubin,Urine Negative (Negative); Blood,Urine Negative (Negative); Color,Urine Light Yellow; Glucose,Urine (UA) Negative (Negative); Ketones,Urine Negative (Negative); Leukocyte Esterase,Urine Negative (Negative); Nitrite,Urine Negative (Negative); Protein,Urine Negative (Negative); Specific Gravity,Urine 1.014 (1.001-1.035); Urobilinogen,Urine <2.0 mg/dL (<2.0)
[2020-12-12 10:45] LABS: African American GFR (CKD) >90 (>60 ml/min/1.73 sqM); Anion Gap 5 mmol/L; Blood Urea Nitrogen 16 mg/dL (9-20); Calcium 9.6 mg/dL (8.4-10.2); Carbon Dioxide 33 mmol/L (22-30); Chloride 104 mmol/L (98-107); Glucose 88 mg/dL (74-99); Non-African American GFR(CKD) >90 (>60 ml/min/1.73 sqM); Potassium 4.1 mmol/L (3.5-5.1); Sodium 142 mmol/L (137-145)
== END | disposition home or self-care (01) ==
LOC: LABPAT 09:30
PROVIDERS: ATTEND Orthopaedic Surgery Orthopaedic Surgery of the Spine
DX: Z01.818 Encounter for other preprocedural examination (principal); M48.02 Spinal stenosis, cervical region
CPT/HCPCS: 36415; 71046; 80048; 81003; 85025; 85610; 85730

== ENCOUNTER → 2020-12-17 | Day surgery (SDC) | payer OTHER ==
[2020-12-13 16:32] VITALS: BMI 35.7
[~2020-12-17] MED LIST: LIDOCAINE 1% INJ 10MG/ML (20 ML MDV) SQ ONE; MIDAZOLAM 2 MG/2 ML VIAL IVP ONE; SODIUM CHLORIDE 0.9% 500 ML 500 ML IV SCH; diphenhydrAMINE 50 MG/ML 1 ML VIAL ONE; fentaNYL (PF) 50 MCG/ML 2 ML AMP IVP ONE; methylPREDNISolone SOD SUCCI 125 MG/2 ML VIAL ONE
[2020-12-17 07:11] VITALS: RESP 16; TEMP 98.7
--- NOTE | 2020-12-17 08:13 | P.OP ---
Date of Procedure: 12/17/20 Preoperative Diagnosis: DVT, h/o multiple PE's, Need for neck surgery unable to anticoagulate Postoperative Diagnosis: Same Procedure(s) Performed: 1. IVC filter placement 2. IVC Venogram 3. Ultrasound guided right common femoral vein access Anesthesia: local, other (Conscious sedation x 20 minutes) Surgeon: Alexis Cohen Pathology: none sent Condition: stable Indications for Procedure: 65 year old male with history of LLE DVT and multiple PE's in the past presents today for IVC filter placement secondary to need for neck surgery and high risk for PE. Patient will not be able to be anticoagulated per his surgeon and was requesting IVC filter placement. We will place a retrievable filter today. Description of Procedure: After written and informed consent was obtained the patient all risks benefits and complications were described the patient is brought to the [facility] and laid in the supine position. The area of the groins were prepped and draped in usual sterile fashion. Utilizing ultrasound the right common femoral vein was located and shown to be compressible without any evidence of thrombus. Under ultrasound guidance the vein was cannulated and utilizing Seldinger technique a 5-[place] sheath was placed. Venogram was then obtained demonstrating patent iliac vein and inferior vena cava with good visualization of the renal veins. Guidewire was then placed into the inferior vena cava followed by the deployment sheath for the [place] filter. IVC venogram was once again obtained demonstrating good visualization of the renal vein and Cook filter was deployed between the L2-L3 vertebrae in normal fashion. Final venogram was obtained demonstrating good positioning of the filter. All guidewires and catheters were then removed and pressure was held for hemostasis. Patient was then sent to PACU for recovery. Plan - Discharge Summary Discharge Rx Participant: No New Discharge Prescriptions: No Action Multivitamins, Thera [Multivitamin (formulary)] 1 tab PO DAILY Zinc 100 mg PO DAILY Turmeric Root Extract [Turmeric] 500 mg PO DAILY Losartan Potassium [Cozaar] 50 mg PO DAILY amLODIPine [Norvasc] 5 mg PO DAILY Hydrochlorothiazide [hydroCHLOROthiazide] 12.5 mg PO DAILY Cyanocobalamin [Vitamin B-12] 1,500 mcg PO DAILY Apixaban [Eliquis Starter Pack (for VTE)] 5 mg PO BID Magnesium 350 mg PO DAILY HYDROcodone/APAP 7.5-325MG [[place] 7.5-325] 1 tab PO Q4H PRN PRN Reason: Pain Discharge Medication List Hydrochlorothiazide [hydroCHLOROthiazide] 12.5 mg PO DAILY 10/19/20 [History] Losartan Potassium [Cozaar] 50 mg PO DAILY 10/19/20 [History] Multivitamins, Thera [Multivitamin (formulary)] 1 tab PO DAILY 10/19/20 [History] Turmeric Root Extract [Turmeric] 500 mg PO DAILY 10/19/20 [History] Zinc 100 mg PO DAILY 10/19/20 [History] amLODIPine [Norvasc] 5 mg PO DAILY 10/19/20 [History] Apixaban [Eliquis Starter Pack (for VTE)] 5 mg PO BID 12/13/20 [History] Cyanocobalamin [Vitamin B-12] 1,500 mcg PO DAILY 12/13/20 [History] Magnesium 350 mg PO DAILY 12/13/20 [History] HYDROcodone/APAP 7.5-325MG [[place] 7.5-325] 1 tab PO Q4H PRN 12/17/20 [History]
--- NOTE | 2020-12-17 09:37 | IR ---
Fluoroscopy HISTORY: Inferior vena cava filter placement 1.7 minutes fluoroscopy time supplied to the referring clinician. 289 intraoperative C-arm images do cument the procedure. See dictated report from vascular surgery.
[2020-12-17 09:47] VITALS: BP 132/68; PULSE 62
== END ==
LOC: CATHCVL 06:23
PROVIDERS: ATTEND Surgery
DX: I82.409 Acute embolism and thrombosis of unspecified deep veins of unspecified lower extremity (principal); C61 Malignant neoplasm of prostate; D64.9 Anemia, unspecified; I10 Essential (primary) hypertension; Z86.718 Personal history of other venous thrombosis and embolism; Z86.711 Personal history of pulmonary embolism; Z90.89 Acquired absence of other organs; Z90.49 Acquired absence of other specified parts of digestive tract; Z91.041 Radiographic dye allergy status; Z91.048 Other nonmedicinal substance allergy status; Z88.0 Allergy status to penicillin; Z79.899 Other long term (current) drug therapy; Z79.01 Long term (current) use of anticoagulants; Z79.891 Long term (current) use of opiate analgesic; Z86.010 Personal history of colon polyps; Z98.890 Other specified postprocedural states; Z80.0 Family history of malignant neoplasm of digestive organs; Z82.49 Family history of ischemic heart disease and other diseases of the circulatory system; Z80.42 Family history of malignant neoplasm of prostate
CPT/HCPCS: 37191; C1769 ×3; C1894; C1880; J2250; J1200; J2930; J2001; J3010

== ENCOUNTER 2020-12-23 05:46 | Inpatient (IN) | payer OTHER ==
[2020-12-18 14:03] VITALS: BMI 34.5
[~2020-12-23 05:46] MED LIST changes: -LIDOCAINE 1% INJ 10MG/ML (20 ML MDV) SQ ONE; -MIDAZOLAM 2 MG/2 ML VIAL IVP ONE; -SODIUM CHLORIDE 0.9% 500 ML 500 ML IV SCH; +ceFAZolin 1,000 MG in SODIUM CHLORIDE 0.9% IRRIGATIO 1,000 ML IRRIGATION PRN; -diphenhydrAMINE 50 MG/ML 1 ML VIAL ONE; -fentaNYL (PF) 50 MCG/ML 2 ML AMP IVP ONE; -methylPREDNISolone SOD SUCCI 125 MG/2 ML VIAL ONE
[2020-12-23] MEDS ORDERED: MIDAZOLAM 2 MG/2 ML VIAL IV PRN (06:04)
[2020-12-23] MEDS ORDERED: DEXAMETHASONE SOD PHOSPHATE 4 MG/ML 1 ML VIAL IV ONE (06:04)
[2020-12-23] MEDS ORDERED: LIDOCAINE 1% (10MG/ML) FOR IV START INTRADERMA PRN (06:04)
[2020-12-23] MEDS ORDERED: ONDANSETRON 4 MG/2 ML VIAL IVP ONE (06:04)
[2020-12-23] MEDS ORDERED: KETAMINE 10 MG/ML 20 ML VIAL ONE (06:53)
[2020-12-23] MEDS ORDERED: PROPOFOL 10 MG/ML 20 ML VIAL IV ONE (06:53)
[2020-12-23] MEDS ORDERED: WATER FOR INJECTION, STERILE 10 ML VIAL IV ONE (06:53)
[2020-12-23] MEDS ORDERED: fentaNYL (PF) 50 MCG/ML 2 ML AMP ONE (06:53)
[2020-12-23] MEDS ORDERED: DEXAMETHASONE SOD PHOSPHATE 10 MG/ML 1 ML VIAL ONE (06:53)
[2020-12-23] MEDS ORDERED: PHENYLEPHRINE 10 MG/ML VIAL ONE (06:53)
[2020-12-23] MEDS ORDERED: MIDAZOLAM 2 MG/2 ML VIAL ONE (06:53)
[2020-12-23] MEDS ORDERED: ePHEDrine SULFATE/0.9% NACL/PF 50 MG/5 ML SYRINGE IV ONE (06:53)
[2020-12-23] MEDS ORDERED: LIDOCAINE 1% INJ 10MG/ML (20 ML MDV) ONE (06:53)
[2020-12-23] MEDS ORDERED: HYDROmorphone (PF) 1 MG/ML ONE (06:53)
[2020-12-23] MEDS ORDERED: SUCCINYLCHOLINE CHLORIDE VIAL 200 MG/10 ML VIAL IV ONE (06:53)
[2020-12-23] MEDS: LACTATED RINGERS 1,000 ML IV SCH (06:54)
[2020-12-23] MEDS ORDERED: BUPIVACAINE (PF) 0.25% 30 ML VIAL SQ ONE ×2 (07:34)
[2020-12-23] MEDS ORDERED: THROMBIN (BOVINE) 5,000 UNIT VIAL TOPICAL ONE (07:34)
[2020-12-23] MEDS ORDERED: GELATIN SPONGE,ABSORB (LARGE) 1 EACH SPONGE MISCELLANE ONE ×2 (07:34→07:36)
[2020-12-23] MEDS ORDERED: LIDOCAINE 2%-EPI 1:100,000 20 ML VIAL SQ ONE ×2 (07:34)
[2020-12-23] MEDS ORDERED: LACTATED RINGERS 1,000 ML IV ONE (08:37)
[2020-12-23] MEDS ORDERED: HYDROcodone/APAP 5-325MG 1 EACH TAB PO PRN (09:29)
[2020-12-23] MEDS ORDERED: ACETAMINOPHEN TAB 325 MG TAB PO PRN (09:29)
[2020-12-23] MEDS ORDERED: BENZOCAINE/MENTHOL LOZENG 1 EACH LOZENGE MUCOUS MEM PRN (09:29)
[2020-12-23] MEDS ORDERED: HYDROmorphone 0.5 MG/0.5 ML SYRINGE IVP PRN (09:29)
--- NOTE | 2020-12-23 09:41 | P.OP ---
Date of Procedure: 12/23/20 Preoperative Diagnosis: Cervical myelopathy, upper extremity weakness, cervical myelomalacia severe cervical stenosis C5 6 C4 5 C6 7, disc herniation C4 5 C5 6 C6 7, degenerative disc disease, upper extremity radiculopathy, neck pain, upper extremity pain, recent history of DVT with pulmonary embolus Postoperative Diagnosis: Same Anesthesia: GETA Pathology: none sent Condition: stable Disposition: PACU Description of Procedure: BRIEF OPERATIVE NOTE Preoperative Diagnosis:Cervical myelopathy, upper extremity weakness, cervical myelomalacia severe cervical stenosis C5 6 C4 5 C6 7, disc herniation C4 5 C5 6 C6 7, degenerative disc disease, upper extremity radiculopathy, neck pain, upper extremity pain, recent history of DVT with pulmonary embolus Postoperative Diagnosis:Cervical myelopathy, upper extremity weakness, cervical myelomalacia severe cervical stenosis C5 6 C4 5 C6 7, disc herniation C4 5 C5 6 C6 7, degenerative disc disease, upper extremity radiculopathy, neck pain, upper extremity pain, recent history of DVT with pulmonary embolus Procedure: Anterior cervical decompression with discectomy and fusion C4 5 C5 6 C6 7 Placement of interbody graftC4 5 C5 6 C6 7 Application of anterior cervical plateC4 5 6 and 7 Surgeon: Dr. Resendez Senior Training And Development Rep: Marvin Hathaway is present throughout the entire the case persistence during positioning, dissection, exposure, visualization, and all crucial elements of the case as well as closure. Anesthesia: General anesthesia Estimated blood loss:Approximately 50 mL Complications: None apparent Components implanted:K2M Coke anterior cervical plate system with 16 mm screws and Vikos interbody allograft bone graft and 1 mL of DBX bone putty Disposition: To recovery room in good stable condition. OPERATIVE INDICATIONS The patient has hadsevere issues is his upper extremities. the patient has been getting workup in order to get a total knee replacement but developed problems with blood clots and pulmonary embolus. He also developed severe issues in his neck and his upper extremity screws having evidence of weakness and evidence of myelopathy. He had evaluation and further workup which showed severe cervical stenosis with myelomalacia and disc herniation at multiple levels. These findings correlated well with his neck and his upper extremity symptoms and his weakness at his upper extremities as well as his balance changes coronation and dexterity changes at his upper extremities. The patient has been through conservative treatment. he was having worsening of his symptoms. He was at significant risk due to his risk of pulmonary embolus and the patient needed significant hematology evaluation and workup and treatment prior to undergoing surgical intervention. The patient was able to have and inferior vena cava filter and has been transitioned over to Eliquis for his blood thinners. He has not been having evidence of further ulnar embolus. He has been seen with hematology oncology and they felt that he was in good stable condition for procedure to proceed with holding Eliquis for 2 days prior to surgery with the IVC filter intact. They did not feel he needed after bridge prior to his surgery being off they'll Eliquis for 2 days. We felt that we would be able to start the blood thinner back on the day after his surgery. We discussed the significant increased risk for the patient due to his hematology concerns and ulnar embolus risk and his blood thinners. He understood that he was at significantly increased risk for this. He also understood that he had a severe issue at his cervical spine with changes and his spinal cord which may be permanent for him. He is also provided more risk for him given the severe stenosis at his cervical spine. He understood that the surgery would not in any way guarantee recovering of his neurologic function that he lost due to his stenosis and a lot of pain with myelomalacia malacia. It would give him the best chance of recovering with the pressure off of his spinal cord. He also has a significant lipoma posteriorly which we were not planning on addressing at this point . We discussed various treatment options including surgery, and the patient wishes to proceed with surgery We discussed the risk, patient's alternatives and benefits of surgery including but not limited to, risk of bleeding risk of infection, risk of need for further surgery, risk of decreased, loss of motion, muscle function, malunion nonunion, hardware failure, nerve damage, paralysis, heart attack, and . OPERATIVE SUMMARY After discussing all the risks, patient alternatives and benefits at length, the patient elected to proceed with surgical intervention, signed informed consent, and presented for their procedure. The patient was seen and examined in the preoperative holding area and the surgical site was marked. The patient was given antibiotics and brought to the operating room. The patient was positioned on the operating room table in a supine position being careful to pad any bony prominences and pressure points. The patient was sedated and intubated by anesthesia in standard fashion. Once the airway and C- spine were stabilized the patient's arms were padded and tucked at her side, with her shoulders gently taped. The head was placed in a donut pad with the neck in good neutral alignment and position. We were careful to maintain the patient's cervical spine and good neutral alignment and position throughout. The patient was prepped and draped in a normal standard fashion. An appropriate timeout and keystone protocol performed. We were able to proceed with the surgery. The local wound area was infiltrated with local anesthetic. An incision was made transversely approximately 2-1/2 cm over the appropriate levels Over C5 6. Dissection was taken down subcutaneously to the level of the platysma which was split in line with its fibers. Dissection was taken with a carotid approach, with the trachea and esophagus medial and the carotid sheath laterally. We dissected down to the anterior surface of the vertebral bodies. Intraoperative x-ray was taken which showed a marker at the appropriate level Of C4 5. With the appropriate level positively confirmed, we were able to proceed with discectomy at the appropriate levels, starting at C4 5 and then moving to see I 6 and then to C6 7. All of the operative levels were exposed appropriately. The patient had all their twitches back, and there was no evidence of recurrent laryngeal issue. The wound was copiously irrigated and suctioned dry as had been done periodically throughout the case. At the appropriate level/levels, I established an annulotomy with an 11 blade scalpel. A discectomy was performed with a combination of pituitary rongeurs, curettes, a high-speed bur, and Kerrison rongeurs. The posterior longitudinal ligament was taken down as were any posterior osteophytes. note was made of severe disc herniation with cervical stenosis centrally and at the bilateral neural foramen at each level particularly at C4 5. I was able to take down the disc and the posterior osteophytes and relief centrally and at the bilateral neural foramen. This gave good central and bilateral foraminal decompression. There is no evidence of any dural tear or leak. The endplates were prepared with a high- speed bur. With the endplates in good parallel position, I was able to size for the appropriate size interbody graft. The wound was irrigated and suctioned dry the graft was prepared and malleted into position. It had good alignment and position with the anterior surface flush with the anterior surface of the vertebral bodies. This was done similarly the appropriate levels first at C4 5 C5 6 C6 7. With the grafts intact, I was able to measure and contour and appropriate sized plate. The plate was positioned at the midline over the appropriate levels From C4 to C6. Screw holes were established with a hand drill and drill guide. Screws were placed in good alignment and position with excellent bony purchase. They were seated under the locking device. The construct was checked and found to be stable. Intraoperative x-ray was taken which showed good alignment and position of the implants at the appropriate levels. There was no evidence of any dural tear or leak. Good hemostasis was maintained. The wound was copiously irrigated and suctioned dry as had been done periodically throughout the case. The platysma was closed with absorbable suture. The subcutaneous tissue was closed. The subcuticular tissue was closed with absorbable suture. The wound was cleaned and dried and dressed appropriately. A soft cervical collar was placed appropriately. The patient was woken up by anesthesia, extubated, transferred back gently to their hospital bed and brought to the recovery room in good stable condition. The patient will be admitted to the hospital for appropriate postoperative care, medical management and monitoring. We will continue to follow them closely about the postoperative course.
[2020-12-23] MEDS ORDERED: LABETALOL SYRINGE 5 MG/ML IVP ONE (10:09)
[2020-12-23] MEDS: HYDROmorphone 0.5 MG/0.5 ML SYRINGE IVP PRN ×2 (10:17→10:30)
--- NOTE | 2020-12-23 10:45 | XR ---
Cervical spine HISTORY: Needle placement Single lateral cervical spine There is a needle present within the C4-5 disc space. Multilevel spondylosis is present. Endotracheal tube noted incidentally. Exam is limited, C7 and T1 not seen. Facet arthropathy changes are present. IMPRESSION: Orthopedic localization.
--- NOTE | 2020-12-23 10:46 | XR ---
Cervical spine HISTORY: Hardware placement A single lateral view of cervical spine correlated prior exam on same date earlier time Patient is status post anterior cervical fusion and discectomy at C4-C7. There is near-anatomic align ment suspected. Lower cervical spine not well seen. Intervertebral tube in place. Endotracheal tube r emains in place. There are overlying artifacts. IMPRESSION: Orthopedic follow-up.
[2020-12-23] MEDS: HYDROmorphone 1 MG/ML 1 ML SYRINGE IVP PRN ×2 (14:00→22:27)
[2020-12-23 15:33] VITALS: RESP 18
[2020-12-23] MEDS: ceFAZolin 3 GM in SODIUM CHLORIDE 0.9% 100 ML IVPB SCH ×2 (16:13→23:32)
[2020-12-23] MEDS: SODIUM CHLORIDE 0.9% 1,000 ML IV SCH ×2 (16:13→23:20)
[2020-12-23] MEDS ORDERED: ONDANSETRON 4 MG/2 ML VIAL IVP PRN (17:21)
[2020-12-24] MEDS: HYDROmorphone 1 MG/ML 1 ML SYRINGE IVP PRN (06:31)
[2020-12-24] MEDS: LACTATED RINGERS 1,000 ML IV SCH (07:26)
--- NOTE | 2020-12-24 08:55 | P.DS ---
Providers Date of admission: 12/23/20 05:46 Expected date of discharge: 12/24/20 Attending physician: Jean-Pierre Resendez Primary care physician: Charlie Tapia - Discharge Diagnosis(es) (1) Cervical stenosis of spinal canal Current Visit: Yes Status: Acute (2) Myelomalacia of cervical cord Current Visit: Yes Status: Acute (3) Cervical myelopathy Current Visit: Yes Status: Acute (4) Unsteady gait Current Visit: Yes Status: Acute (5) Upper extremity weakness Current Visit: Yes Status: Acute (6) Radiculopathy affecting upper extremity Current Visit: Yes Status: Acute (7) Cervicalgia Current Visit: Yes Status: Acute (8) Cervical disc herniation Current Visit: Yes Status: Acute (9) Degenerative cervical disc Current Visit: Yes Status: Acute (10) History of blood clots Current Visit: Yes Status: Acute (11) Hypertension Current Visit: Yes Status: Acute (12) History of prostate cancer Current Visit: Yes Status: Acute (13) Pulmonary embolism Current Visit: No Status: Acute Hospital Course: This is a pleasant 65-year-old male who presented with cervical myelopathy, cervical myelomalacia, unsteady gait, upper extremity weakness, severe cervical stenosis and herniated nucleus pulposus at C4-5, C5-6, and C6-7, cervical degenerative disc disease, cervicalgia and upper extremity radiculopathy, and history of recent DVT with pulmonary embolus who failed outpatient conservative therapy. He was admitted for a C4-5, C5-6, and C6-7 anterior cervical decompression and fusion. The patient tolerated the procedure well and did well postoperatively. He has some soreness at his cervical spine. He is not currently complaining of any upper extremity pain. He is moving his upper extremities well without difficulty. He has been able to eat food following surgical intervention but does admit to some difficulty with swallowing but feels he still is able to eat. He does feel he is ready for discharge home today. Condition on day of discharge stable. Patient will be discharged home. Patient was cleared preoperatively for surgery by Dr. Tapia and Dr. Hoskins. Patient currently denies any nausea, vomiting, fever, or chills. Patient is voiding freely without difficulty. Patient may shower Optifoam dressing intact. Patient may remove Optifoam dressing in 3 days and shower without a dressing at that time. Patient should refrain from driving until at least after their first follow-up appointment in the office. Patient should avoid excessive neck flexion, extension, rotation, and lateral sidebending; no overhead lifting; no lifting greater than 10 pounds. Patient is encouraged to continue using a walker to aid in ambulation as needed. He may wear his soft cervical collar for comfort or support as needed. Patient is known have recently sustained bilateral pulmonary embolism. IVC filter was placed prior to surgical intervention. Anticoagulation has been monitored by hematology. Postoperatively patient is cleared to restart Eliquis today, 12/24/2020. Patient will follow up with hematology as previously scheduled. MAPS has been reviewed today, 12/24/2020, with an Overall Overdose Risk Score of 140. An "Opiod Start Talking" Form has been signed and placed in the patient's chart. A prescription has been written for Mystic 5 mg/325 mg 1 tab every 6 hours as needed for pain, dispensed #28. Patient's other medical diagnoses include hypertension, blood clots, and prostate cancer. Physical Exam on day of discharge: Patient is awake, alert, and oriented 3 Vital signs stable Good chest excursion with deep inspiration and expiration Full range of motion of the cervical spine with adequate flexion, extension, and bilateral rotation Rubber Down strength, thumb strength, interosseous strength, biceps strength, triceps strength, and shoulder strength positive sustained bilaterally Soft cervical collar intact Incision is clean, dry, and intact; no erythema, purulence, or signs of infection Optifoam dressing intact Procedures: C4-5, C5-6, and C6-7 anterior cervical decompression and fusion Patient Condition at Discharge: Stable Plan - Discharge Summary Discharge Rx Participant: Yes New Discharge Prescriptions: New HYDROcodone/APAP 5-325MG [Mystic 5] 1 each PO Q6HR PRN #28 tab PRN Reason: Pain No Action Multivitamins, Thera [Multivitamin (formulary)] 1 tab PO DAILY Zinc 100 mg PO DAILY Turmeric Root Extract [Turmeric] 500 mg PO DAILY Losartan Potassium [Cozaar] 50 mg PO QAM amLODIPine [Norvasc] 5 mg PO QAM Hydrochlorothiazide [hydroCHLOROthiazide] 12.5 mg PO DAILY Cyanocobalamin [Vitamin B-12] 1,500 mcg PO DAILY Apixaban [Eliquis Starter Pack (for VTE)] 5 mg PO BID Magnesium 350 mg PO DAILY Discharge Medication List Hydrochlorothiazide [hydroCHLOROthiazide] 12.5 mg PO DAILY 10/19/20 [History] Losartan Potassium [Cozaar] 50 mg PO QAM 10/19/20 [History] Multivitamins, Thera [Multivitamin (formulary)] 1 tab PO DAILY 10/19/20 [History] Turmeric Root Extract [Turmeric] 500 mg PO DAILY 10/19/20 [History] Zinc 100 mg PO DAILY 10/19/20 [History] amLODIPine [Norvasc] 5 mg PO QAM 10/19/20 [History] Apixaban [Eliquis Starter Pack (for VTE)] 5 mg PO BID 12/13/20 [History] Cyanocobalamin [Vitamin B-12] 1,500 mcg PO DAILY 12/13/20 [History] Magnesium 350 mg PO DAILY 12/13/20 [History] HYDROcodone/APAP 5-325MG [Mystic 5] 1 each PO Q6HR PRN #28 tab 12/24/20 [Rx] Follow up Appointment(s)/Referral(s): Marvin Evans, TANGELA [PHYSICIAN SPARE FIXER] - 2 Weeks (Patient may follow-up with Marvin Evans PA-C or Dr. Skinny Resendez at [facility] in 2-3 weeks following discharge. ) Activity/Diet/Wound Care/Special Instructions: 1. Patient may shower with Optifoam dressing intact. 2. Patient may remove Optifoam dressing in 4 days and shower without a dressing at that time. 3. Patient may wear soft cervical collar for comfort support as needed. 4. Patient should refrain from driving until at least after their first follow- up appointment in the office. 5. Patient should avoid excessive cervical flexion, extension, and side bending; avoid overhead lifting; no lifting greater than 10 pounds 6. Take medications as prescribed 7. Do not soak in tub Discharge Disposition: HOME SELF-CARE
[2020-12-24] MEDS ORDERED: amLODIPine 5 MG TAB PO SCH (09:00)
[2020-12-24] MEDS ORDERED: hydroCHLOROthiazide 12.5 MG CAP PO SCH (09:00)
[2020-12-24] MEDS ORDERED: SENNOSIDES-DOCUSATE SODIUM 1 EACH TAB PO SCH (09:00)
[2020-12-24] MEDS ORDERED: LOSARTAN 50 MG TAB PO SCH (09:00)
[2020-12-24] MEDS ORDERED: APIXABAN 5 MG TAB PO SCH (09:00)
[2020-12-24] MEDS ORDERED: MULTIVITAMINS, THERA 1 EACH TAB PO SCH (09:00)
[2020-12-24] MEDS ORDERED: MAGNESIUM OXIDE 400 MG TAB PO SCH (09:00)
[2020-12-24] MEDS ORDERED: CYANOCOBALAMIN 500 MCG TAB PO SCH (09:00)
[2020-12-24 12:47] VITALS: BP 144/69; PULSE 80; TEMP 98.2
[2020-12-24] MEDS: SODIUM CHLORIDE 0.9% 1,000 ML IV SCH (14:48)
== END 2020-12-24 15:46 | disposition home or self-care (01) | DRG 472 ==
LOC: 2ORMAIN 05:46 → 5NMEDONC 13:15
PROVIDERS: ADMIT Orthopaedic Surgery Orthopaedic Surgery of the Spine; ATTEND Orthopaedic Surgery Orthopaedic Surgery of the Spine
PROC: 0RB30ZZ Excision of Cervical Vertebral Disc, Open Approach (ICD-10-PCS; 2020-12-23)
PROC: 01N10ZZ Release Cervical Nerve, Open Approach (ICD-10-PCS; 2020-12-23)
PROC: 0RG20K0 Fusion of 2 or more Cervical Vertebral Joints with Nonautologous Tissue Substitute, Anterior Approach, Anterior Column, Open Approach (ICD-10-PCS; principal; 2020-12-23 07:00)
DX: M50.021 Cervical disc disorder at C4-C5 level with myelopathy (principal); G95.89 Other specified diseases of spinal cord; M48.02 Spinal stenosis, cervical region; M50.121 Cervical disc disorder at C4-C5 level with radiculopathy; R26.81 Unsteadiness on feet; I10 Essential (primary) hypertension; Z79.01 Long term (current) use of anticoagulants; Z79.899 Other long term (current) drug therapy; Z98.890 Other specified postprocedural states; Z86.711 Personal history of pulmonary embolism; Z86.718 Personal history of other venous thrombosis and embolism; Z95.828 Presence of other vascular implants and grafts; Z85.46 Personal history of malignant neoplasm of prostate; Z86.010 Personal history of colon polyps; Z90.49 Acquired absence of other specified parts of digestive tract; Z80.8 Family history of malignant neoplasm of other organs or systems; Z80.0 Family history of malignant neoplasm of digestive organs; Z82.49 Family history of ischemic heart disease and other diseases of the circulatory system
CPT/HCPCS: 72020; 86850; 86900; 86901; 94760

== ENCOUNTER 2021-04-07 12:35 | Observation (INO) | payer OTHER ==
[2021-04-01 14:58] VITALS: BMI 34.2
[~2021-04-07 12:35] MED LIST changes: +ACETAMINOPHEN TAB 500 MG TAB PO PRN; +DEXAMETHASONE SOD PHOSPHATE 4 MG/ML 1 ML VIAL IV ONE; +GABAPENTIN 300 MG CAP PO PRN; +MELOXICAM 7.5 MG TAB PO PRN; +MIDAZOLAM 2 MG/2 ML VIAL IV PRN; +ONDANSETRON 4 MG/2 ML VIAL IVP ONE; +ROPIVACAINE/EPI/CLONIDINE/KET 50 ML SYRINGE MISCELLANE PRN; +SCOPOLAMINE 1.5MG/72HR PATCH TRANSDERM ONE; +TRANEXAMIC ACID 1,000 MG in SODIUM CHLORIDE 0.9% 100 ML IVPB PRN; -ceFAZolin 1,000 MG in SODIUM CHLORIDE 0.9% IRRIGATIO 1,000 ML IRRIGATION PRN
[2021-04-07] MEDS: LACTATED RINGERS 1,000 ML IV SCH ×2 (13:37→22:48)
[2021-04-07] MEDS ORDERED: MIDAZOLAM 2 MG/2 ML VIAL IVP ONE (14:11)
[2021-04-07] MEDS ORDERED: fentaNYL (PF) 50 MCG/ML 2 ML AMP IVP ONE (14:11)
[2021-04-07] MEDS ORDERED: TRANEXAMIC ACID 1,000 MG/10 ML VIAL ONE (15:24)
[2021-04-07] MEDS ORDERED: MIDAZOLAM 2 MG/2 ML VIAL ONE (15:24)
[2021-04-07] MEDS ORDERED: SODIUM CHLORIDE 0.9% 100 ML BAG ONE (15:24)
[2021-04-07] MEDS ORDERED: fentaNYL (PF) 50 MCG/ML 2 ML AMP ONE (15:24)
[2021-04-07] MEDS ORDERED: NALOXONE 0.4 MG/ML 1 ML VIAL IV PRN (15:32)
[2021-04-07] MEDS ORDERED: NA PHOS,M-B/NA PHOS,DI-BA 133 ML ENEMA RECTAL PRN (15:32)
[2021-04-07] MEDS ORDERED: ONDANSETRON 4 MG/2 ML VIAL IVP PRN (15:32)
[2021-04-07] MEDS ORDERED: bisacodyL 10 MG SUPP RECTAL PRN (15:32)
[2021-04-07] MEDS ORDERED: HYDROmorphone 1 MG/ML 1 ML SYRINGE IVP PRN (15:32)
[2021-04-07] MEDS ORDERED: MAGNESIUM HYDROXIDE 2,400 MG/10 ML CUP PO PRN (15:32)
[2021-04-07] MEDS ORDERED: HYDROmorphone 0.5 MG/0.5 ML SYRINGE IVP PRN (15:32)
[2021-04-07] MEDS ORDERED: HYDROmorphone 0.2 MG/1 ML SYRINGE IVP PRN (15:32)
[2021-04-07] MEDS ORDERED: HYDROcodone/APAP 7.5-325MG 1 EACH TAB PO PRN (15:34)
[2021-04-07] MEDS ORDERED: ceFAZolin 3,000 MG in SODIUM CHLORIDE 0.9% IRRIGATIO 3,000 ML IRRIGATION ONE (16:05)
[2021-04-07] MEDS ORDERED: LACTATED RINGERS 1,000 ML IV ONE (16:47)
--- NOTE | 2021-04-07 16:50 | P.OP ---
Date of Procedure: 04/07/21 Preoperative Diagnosis: Severe osteoarthritis left knee Postoperative Diagnosis: Severe osteoarthritis left knee Procedure(s) Performed: Left total knee arthroplasty Implants: [employer] Journey II CR Oxinium cruciate retaining femoral component size 7, left [employer] Journey nonporous tibial baseplate size 6, left [employer] Journey II, XLPE Deep Dished articular insert, size 9 mm, Size 5- 6, left [employer] Journey Xochitl II resurfacing patellar component, oval, 35 mm All components were cemented using Palacos R bone cement The articulation is Oxinium on polyethylene Anesthesia: spinal Surgeon: Gustabo Higginbotham Customs Examiner #1: Sally Guo Estimated Blood Loss (ml): 100 Pathology: other (Bone and cartilage) Condition: stable Disposition: PACU Indications for Procedure: After failure of conservative treatment we discussed the surgical and nonsurgical treatment options at length. Patient wishes to proceed with a total knee arthroplasty. Complications specific to this procedure were discussed at length, including but not limited to infection, bleeding, stiffness, and nerve injury. Covid-19 was also discussed at length with the patient, and they are aware of the current policies and procedures. The patient was given the option of delaying surgery, but they elect to proceed knowing these risks. Patient is aware of all these complications and informed consent was obtained Operative Findings: The operative findings are consistent with severe osteoarthritis of the left knee Description of Procedure: Patient was seen in the preoperative area and the consent was reviewed and the operative site was marked with a skin marker. The patient verified the procedure and the operative site. An adductor canal pain catheter was placed by anesthesia in the preoperative area. The patient was then brought to the operating room and given preoperative antibiotics intravenously. A gram of transexamic acid was given intravenously. A spinal anesthetic was administered by the anesthesia department. A tourniquet was placed on the upper thigh and the lower extremity was prepped with chlorhexidine and draped in usual sterile fashion. A universal timeout was then performed which confirmed the patient's name, surgical site, ALLERGIES, and consent. The lower extremity was then exsanguinated and tourniquet was inflated to 250 mmHg. A standard anterior midline approach to the knee was performed. The skin and subcutaneous tissue were sharply dissected down to the patellar tendon. A medial parapatellar arthrotomy was then performed. The knee was then extended, the patellar was everted, and the knee was again flexed. The infra-patellar fat pad was removed in order to enhance exposure. The anterior horns of both menisci were excised, and a release was performed to the posterior medial aspect of the knee. On gross visual inspection, there was complete loss of articular cartilage in the medial and patellofemoral joint spaces. There was also significant cartilage damage in the lateral compartment. There were multiple periarticular osteophytes globally about the knee which were then removed with a Ronguer. The femoral canal was then opened with the 9.5 mm intramedullary drill. The 8 mm intramedullary shantal was then inserted into the femoral canal with the distal femoral cutting guide set for 5 of valgus. The distal femoral cutting block was then pinned in place. The intramedullary shantal was then removed, and the distal femur was then cut. The cutting block was then removed and the cut was checked for symmetry. The resected bone was then measured to confirm the appropriate distal femoral resection. Next, the sizing guide was then placed and set for 3 external rotation based off of the epicondylar axis and Whitesides line. Pins were then placed and the drill holes, and the femur was sized with the sizing stylus. The pins were then removed, and the sizing guide was then removed. The spikes of the femoral block was then placed into the predrilled holes, and malleted into place. Two 45 mm pins were then placed into the fixation holes on the cutting block. An jacob wing was then used to ensure there would be no notching with the anterior cut. The anterior condyles were cut without notching. The anterior chord cut was then performed, followed by the posterior cut, posterior chamfer cut, and the anterior chamfer cut. The collateral ligaments were protected during the entire process. The cutting block was then removed. Any remaining bone and osteophytes were removed from the femur with a Rominger. The femoral canal was plugged with autologous bone. Attention was then directed to the tibia. The remaining ACL was removed with a Ronguer, and the tibia was then gently subluxed forward with a large bent knee retractor. Any remaining menisci were excised. The posterior lateral corner was cauterized in order to coagulate the lateral geniculate artery. The extra medullary tibial cutting guide was then placed, set for the appropriate rotation, slope, and depth of resection. The proximal tibia cutting guide was then pinned in place. Proximal tibia was then cut and sized. The femoral trial was placed. A narrow saw blade was then used to remove the anterior intracondylar femoral bone. The CR notch trial was then placed. The tibial trial was placed with the appropriate-sized insert. The knee was able to fully extend and flex to 130 and was stable throughout all range of motion. The knee was then extended and the patella was everted. Patella was then measured, and then using an osteotomy guide, the patella was cut at the appropriate level. The patella was then measured and drilled and the patella trial was then placed. The knee was then taken through range of motion with the patella trial and the patella tracked normally using the no thumbs technique.. The knee was then extended patella trial was then removed and the patella was everted. Knee was then flexed and lug holes were drilled through the femoral trial and the femoral trial was then removed. The tibial was then re-exposed, and the tibial broach guide was then pinned in place after it was set for the appropriate rotation to allow for the most coverage without overhang. The tibia was then reamed and broached. The cut surfaces of bone were then irrigated with pulsatile lavage. The posterior structures were injected with the ropivacaine solution. The knee was also irrigated with Irrisept solution. The components were then opened, the cement was mixed, and the components were then cemented in place. The cement was allowed to harden with the knee in full extension. While the cement was hardening, the remaining soft tissues were then injected with a ropivacaine so lution, which consisted of 246.25 mg of ropivacaine, 0.5 mg of epinephrine, 30 mg of Toradol, 80 g of clonidine, and 48.45 mL of sterile water, for a total of 100 mL of fluid injected. After the cemented hardened. The tourniquet was released, and hemostasis was obtained. A second gram of transexamic acid was given intravenously. The knee was again irrigated. The knee was again taken through range of motion and found to be stable throughout all range of motion of 0-130, and the patella tracked normally. The fascia was then closed with 0 Vicryl followed by #2 strata fix suture. The subcutaneous tissue was closed with 3-0 Vicryl and 3-0 strata fix. Exofin glue was used for the skin and placed with the knee in flexion. After the glue had dried, and Optafoam silver impregnated dressing was applied. The patient was then transferred to recovery room in stable condition. The title i assistant MAIKEL Soto was required due the complexity surgery and the need for a skilled funeral assistant. She assisted in positioning, draping, retraction, and closure of the wound.
[2021-04-07] MEDS ORDERED: ROPIVACAINE 0.2%-NS ON-Q PUMP 2 MG/ML EACH MISCELLANE ONE (17:36)
[2021-04-07] MEDS ORDERED: MEPERIDINE 50 MG/ML SYRINGE IVP ONE (17:48)
[2021-04-07] MEDS: HYDROmorphone 0.5 MG/0.5 ML SYRINGE IVP PRN ×2 (18:06→18:11)
--- NOTE | 2021-04-07 18:16 | P.ANPRN ---
Procedure Note - Anesthesia - Nerve Block Performed Left Adductor Canal Infusion Time Out Performed: Yes Date of Procedure: 04/07/21 Procedure Start Time: 14:30 Procedure Stop Time: 14:50 Location of Patient: PreOp Indication: Acute Post-Operative Pain, Dx/Pain Location, Requested by Surgeon Specifically requested for management of pain by : Gustabo Higginbotham Sedation Type: Sedate with meaningful contact maintained Preparation: Sterile Prep Position: Supine Catheter Depth at Skin (cm): 5 Catheter: Indwelling Needle Types: Pajunk Needle Gauge: 20 Ultrasound used to visualize needle placement: Yes Ultrasound used to observe medication spread: Yes Injectate: 0.5% Ropivacaine (see comment for volume) Blood Aspirated: No Pain Paresthesia on Injection Noted: No Resistance on Injection: Normal Image Stored and Saved: Yes Events: Uneventful and Well Tolerated (30cc 0.5% ropivacaine)
--- NOTE | 2021-04-07 18:17 | XR ---
Limited left knee HISTORY: Postop 2 views left knee Patient is status post left knee arthroplasty. There is anatomic alignment. Lucency is present within the soft tissues. IMPRESSION: Orthopedic follow-up.
[2021-04-07] MEDS: SODIUM CHLORIDE 0.9% 1,000 ML IV SCH ×2 (19:32→22:48)
[2021-04-07] MEDS: APIXABAN 5 MG TAB PO SCH (20:05)
[2021-04-07] MEDS ORDERED: SENNOSIDES-DOCUSATE SODIUM 1 EACH TAB PO SCH (21:00)
[2021-04-07] MEDS: ceFAZolin 3 GM in SODIUM CHLORIDE 0.9% 100 ML IVPB SCH (23:17)
--- NOTE | 2021-04-08 07:17 | P.PN ---
Progress Note - Text Progress Note Date: 04/08/21 Patient seen and examine POD 1. Knee pain is well controlled with adductor canal catheter and oral pain medication. Referred pain to the groin area is reported. Patient denies nausea, paralysis. Patient is able to use the restroom without difficulty. Continue infusion.
[2021-04-08 07:58] VITALS: RESP 16
[2021-04-08] MEDS: ceFAZolin 3 GM in SODIUM CHLORIDE 0.9% 100 ML IVPB SCH (08:34)
[2021-04-08] MEDS: APIXABAN 5 MG TAB PO SCH (08:35)
[2021-04-08] MEDS: HYDROcodone/APAP 7.5-325MG 1 EACH TAB PO PRN ×2 (08:35→14:24)
[2021-04-08 09:45] LABS: Basophils # (A) 0.01 X 10*3/uL (0.00-0.10); Basophils % (A) 0.1 %; Eosinophils # (A) 0.01 X 10*3/uL (0.04-0.35); Eosinophils % (A) 0.1 %; HCT 40.9 % (39.6-50.0); HGB 13.4 g/dL (13.0-17.0); Lymphocytes # (A) 1.74 X 10*3/uL (0.90-5.00); Lymphocytes % (A) 11.7 %; MCH 30.4 pg (27.0-32.0); MCHC 32.8 g/dL (32.0-37.0); MCV 92.7 fL (80.0-97.0); Mean Platelet Volume 9.5 fL (9.5-12.2); Monocytes # (A) 1.45 X 10*3/uL (0.20-1.00); Monocytes % (A) 9.8 %; Platelet Count 264 X 10*3/uL (140-440); RBC 4.41 X 10*6/uL (4.40-5.60); RDW 13.5 % (11.5-14.5); WBC 14.85 X 10*3/uL (4.50-10.00)
--- NOTE | 2021-04-08 13:47 | P.CONS ---
History of Present Illness - Reason for Consult Hypertension, medical clearance. - History of Present Illness Is a pleasant 65-year-old the male came in for left knee arthroplasty sepsis and underwent surgery patient pain is well controlled at this time patient is passing gas. Patient does have history of hypertension for which patient is on hydrochlorothiazide, amlodipine, losartan and patient did take calcium channel elyse and losartan yesterday did patient blood pressure is low normal today patient didn't take any of his antidepressive medications. As elevated white blood cell count without any signs or symptoms of sepsis. Review of Systems REVIEW OF SYSTEMS: CONSTITUTIONAL: No fever, no malaise, no fatigue. HEENT: No recent visual problems or hearing problems. Denied any sore throat. CARDIOVASCULAR: No chest pain, orthopnea, PND, no palpitations, no syncope. PULMONARY: No shortness of breath, no cough, no hemoptysis. GASTROINTESTINAL: No diarrhea, no nausea, no vomiting, no abdominal pain. NEUROLOGICAL: No headaches, no weakness, no numbness. HEMATOLOGICAL: Denies any bleeding or petechiae. GENITOURINARY: Denies any burning micturition, frequency, or urgency. MUSCULOSKELETAL/RHEUMATOLOGICAL: Denies any joint pain, swelling, or any muscle pain. ENDOCRINE: Denies any polyuria or polydipsia. The rest of the 14-point review of systems is negative. Past Medical History Past Medical History: Cancer, Deep Vein Thrombosis (DVT), Hypertension, Prostate Disorder, Rheumatoid Arthritis (RA) Additional Past Medical History / Comment(s): hx DVT, pulmonary embolisms x2 , prostate CA, doctor watching, herniated discs, prostate CA, rt groin ivc filter History of Any Multi-Drug Resistant Organisms: None Reported Past Surgical History: Appendectomy, Cholecystectomy, Orthopedic Surgery, Tonsillectomy Additional Past Surgical History / Comment(s): 2009 colon-scopy w/polyps removed, TLK. cervical surgery 2020 Past Anesthesia/Blood Transfusion Reactions: No Reported Reaction, Motion Sickness Past Psychological History: No Psychological Hx Reported Smoking Status: Never smoker Past Alcohol Use History: Occasional Past Drug Use History: None Reported - Past Family History Father Family Medical History: Cancer Additional Family Medical History / Comment(s): colon cancer Mother Family Medical History: Cancer Additional Family Medical History / Comment(s): esophageal cancer Medications and Allergies Home Medications Medication Instructions Recorded Confirmed Type Losartan Potassium [Cozaar] 50 mg PO QAM 10/19/20 04/01/21 History Multivitamins, Thera [Multivitamin 1 tab PO DAILY 10/19/20 04/01/21 History (formulary)] Turmeric Root Extract [Turmeric] 500 mg PO DAILY 10/19/20 04/01/21 History Zinc 100 mg PO DAILY 10/19/20 04/01/21 History Apixaban [Eliquis Starter Pack 5 mg PO BID 12/13/20 04/01/21 History (for VTE)] Cyanocobalamin [Vitamin B-12] 1,500 mcg PO DAILY 12/13/20 04/01/21 History Magnesium 350 mg PO DAILY 12/13/20 04/01/21 History HYDROcodone/APAP 5-325MG [[place] 0.5 each PO Q6HR PRN 04/01/21 04/01/21 History 5-325] HYDROcodone/APAP 7.5-325MG [[place] 1 - 2 tab PO Q6H PRN #32 tab 04/08/21 Rx 7.5-325] Sennosides [Senokot] 2 tab PO DAILY PRN #60 tablet 04/08/21 Rx amLODIPine [Norvasc] 5 mg PO QAM #0 04/08/21 04/01/21 Rx Allergies Allergy/AdvReac Type Severity Reaction Status Date / Time amoxicillin Allergy Rash/Hives Verified 04/07/21 13:20 Iodinated Contrast Media Allergy Anaphylaxis Verified 04/07/21 13:20 iodine Allergy Anaphylaxis Verified 04/07/21 13:20 Physical Exam Vitals: Vital Signs Temp Pulse Pulse Resp BP BP Pulse Ox 04/08/21 07:57 97.6 F 70 16 111/57 98 04/08/21 01:15 97.5 F L 85 15 130/71 97 04/07/21 20:59 88 18 130/80 94 L 04/07/21 20:44 94 18 124/81 94 L 04/07/21 20:30 99 18 138/79 92 L 04/07/21 19:59 103 H 18 133/94 95 04/07/21 19:45 102 H 18 135/84 94 L 04/07/21 19:29 95 18 145/101 93 L 04/07/21 19:14 92 18 135/85 96 04/07/21 19:00 98.2 F 99 18 135/90 95 04/07/21 18:44 98.2 F 100 18 168/95 96 04/07/21 18:36 92 18 156/87 97 04/07/21 18:21 95 16 154/84 97 04/07/21 18:06 97 16 155/87 98 04/07/21 17:51 94 16 163/77 98 04/07/21 17:36 75 16 135/65 97 04/07/21 17:21 97.1 F L 95 18 140/65 96 04/07/21 14:30 77 16 154/81 99 Intake and Output 04/07/21 04/08/21 04/08/21 22:59 06:59 14:59 Intake Total 1201 Output Total 100 Balance 1101 Intake: IV 1201 Output: Estimated Blood Loss 100 Other: Voiding Method Toilet # Voids 3 Weight 121.8 kg PHYSICAL EXAMINATION: GENERAL: The patient is alert and oriented x3, not in any acute distress. Well developed, well nourished. HEENT: Pupils are round and equally reacting to light. EOMI. No scleral icterus. No conjunctival pallor. Normocephalic, atraumatic. No pharyngeal erythema. No thyromegaly. CARDIOVASCULAR: S1 and S2 present. No murmurs, rubs, or gallops. PULMONARY: Chest is clear to auscultation, no wheezing or crackles. ABDOMEN: Soft, nontender, nondistended, normoactive bowel sounds. No palpable organomegaly. MUSCULOSKELETAL: No joint swelling or deformity. EXTREMITIES: No cyanosis, clubbing, or pedal edema. NEUROLOGICAL: Gross neurological examination did not reveal any focal deficits. SKIN: No rashes. Results CBC & Chem 7: 04/08/21 06:10 Labs: Abnormal Lab Results - Last 24 Hours (Table) 04/08/21 Range/Units 06:10 WBC 14.85 H (4.50-10.00) X 10*3/uL Neutrophils # 11.60 H (1.80-7.70) X 10*3/uL Monocytes # 1.45 H (0.20-1.00) X 10*3/uL Eosinophils # 0.01 L (0.04-0.35) X 10*3/uL Assessment and Plan Plan: -Hypertension: Patient presently has expected perioperative hypotension and continue to hold off on antidepressant medications today patient instructed his losartan and I recommended him to hold off on hydrochlorothiazide completely and possibly hold off Norvasc as well and is seen by primary care physician with close blood pressure monitoring can start taking Norvasc if his blood pressure starts creeping up. Patient was recommended to follow with PCP in about a week -Left knee arthroplasty and is well controlled at this time patient is being discharged on Eliquis 5 mg by mouth twice a day for DVT prophylaxis -History of DVT in the past, patient is on Eliquis which appears to have been started on April 04 -Hypertension -Benign prostatic hypertrophy Patient is medically stable to be discharged.
[2021-04-08 15:24] VITALS: BP 141/80; PULSE 91; TEMP 98.4
--- NOTE | 2021-04-08 15:24 | P.DS ---
Providers Date of admission: 04/07/21 22:28 Expected date of discharge: 04/08/21 Attending physician: Gustabo Higginbotham Consults: 04/07/21 15:32 Consult Physician Routine Consulting Provider: Dona Tyson Consult Reason/Comments: medical management and anticoagulation Do you want consulting provider notified?: Yes Primary care physician: Charlie Regina - Discharge Diagnosis(es) (1) Osteoarthritis of left knee Current Visit: Yes Status: Acute (2) S/P total knee arthroplasty Current Visit: Yes Status: Acute Hospital Course: This is a 65-year-old male with known history of degenerative arthritis of the left knee. The patient presented for evaluation as an outpatient. After discussion and consideration patient elects to proceed with total knee arthroplasty. The patient is seen preoperatively by Dr. Higginbotham and medically cleared for surgery by their primary care physician. Patient is admitted to [facility] on 04/07/2021 for total knee arthroplasty. The procedure is performed without complication or sequelae. The patient is doing well postoperatively. Labs and vital signs are stable on day of discharge. On day of discharge patient's knee incision is healing well. There is minimal erythema. There is no drainage noted at this time. There is minimal soft tissue swelling to the knee. Patient has full foot and ankle motion without difficulty or pain. Calf is soft and nontender to palpation. Neurovascular status to the left lower extremity is intact. Patient is discharged home in good condition. Opioid start talking form is reviewed and signed. Please see med rec for accurate list of home medications. Plan - Discharge Summary Discharge Rx Participant: No New Discharge Prescriptions: New HYDROcodone/APAP 7.5-325MG [[place] 7.5-325] 1 - 2 tab PO Q6H PRN #32 tab PRN Reason: Pain Sennosides [Senokot] 2 tab PO DAILY PRN #60 tablet PRN Reason: Constipation Continue Multivitamins, Thera [Multivitamin (formulary)] 1 tab PO DAILY Zinc 100 mg PO DAILY Turmeric Root Extract [Turmeric] 500 mg PO DAILY Losartan Potassium [Cozaar] 50 mg PO QAM Cyanocobalamin [Vitamin B-12] 1,500 mcg PO DAILY Apixaban [Eliquis Starter Pack (for VTE)] 5 mg PO BID Magnesium 350 mg PO DAILY amLODIPine [Norvasc] 5 mg PO QAM #0 HYDROcodone/APAP 5-325MG [[place] 5-325] 0.5 each PO Q6HR PRN PRN Reason: Pain Discontinued Hydrochlorothiazide [hydroCHLOROthiazide] 12.5 mg PO DAILY Discharge Medication List Losartan Potassium [Cozaar] 50 mg PO QAM 10/19/20 [History] Multivitamins, Thera [Multivitamin (formulary)] 1 tab PO DAILY 10/19/20 [History] Turmeric Root Extract [Turmeric] 500 mg PO DAILY 10/19/20 [History] Zinc 100 mg PO DAILY 10/19/20 [History] Apixaban [Eliquis Starter Pack (for VTE)] 5 mg PO BID 12/13/20 [History] Cyanocobalamin [Vitamin B-12] 1,500 mcg PO DAILY 12/13/20 [History] Magnesium 350 mg PO DAILY 12/13/20 [History] HYDROcodone/APAP 5-325MG [[place] 5-325] 0.5 each PO Q6HR PRN 04/01/21 [History] HYDROcodone/APAP 7.5-325MG [[place] 7.5-325] 1 - 2 tab PO Q6H PRN #32 tab 04/08/21 [Rx] Sennosides [Senokot] 2 tab PO DAILY PRN #60 tablet 04/08/21 [Rx] amLODIPine [Norvasc] 5 mg PO QAM #0 04/08/21 [Rx] Follow up Appointment(s)/Referral(s): [facility] [NON-STAFF] - As Needed (walker and continuous passive motion knee machine ) Charlie Tapia MD [Primary Care Provider] - 04/15/21 8:00 am (seeing Nemesio Kelly.(FIGURE MODEL)) [facility] [[facility]] - As Needed Gustabo Higginbotham DO [Doctor of Osteopathic Medicine] - 04/23/21 1:15 am Activity/Diet/Wound Care/Special Instructions: Weightbearing as tolerated with a walker. CPM 5-6h daily as tolerated. Leave dressing intact. Dressing may be removed by home care nurse or by patient in 7 days. Then change dressing twice daily until follow up. May shower with initial dressing intact and after removal. If dressing become saturated, please remove. Recommend use of compression stockings daily until follow up to help prevent swelling and blood clots. May remove at night before sleeping. Please resume Eliquis. Please follow up with [facility] and call with any questions or concerns, . Discharge Disposition: HOME WITH HOME HEALTH SERVICES
== END 2021-04-08 14:05 | disposition home health service (06) ==
LOC: OR 12:35 → 4SSUR 18:01 → OR 22:28
PROVIDERS: ADMIT Orthopaedic Surgery; ATTEND Orthopaedic Surgery
DX: M17.12 Unilateral primary osteoarthritis, left knee (principal); I10 Essential (primary) hypertension; M06.9 Rheumatoid arthritis, unspecified; I95.9 Hypotension, unspecified; N40.0 Benign prostatic hyperplasia without lower urinary tract symptoms; S83.242D Other tear of medial meniscus, current injury, left knee, subsequent encounter; S83.282D Other tear of lateral meniscus, current injury, left knee, subsequent encounter; E66.9 Obesity, unspecified; Z68.35 Body mass index [BMI] 35.0-35.9, adult; Z79.01 Long term (current) use of anticoagulants; Z79.899 Other long term (current) drug therapy; Z97.3 Presence of spectacles and contact lenses; Z85.46 Personal history of malignant neoplasm of prostate; Z86.718 Personal history of other venous thrombosis and embolism; Z86.711 Personal history of pulmonary embolism; Z88.0 Allergy status to penicillin; Z91.041 Radiographic dye allergy status; Z91.048 Other nonmedicinal substance allergy status; Z90.49 Acquired absence of other specified parts of digestive tract; Z86.010 Personal history of colon polyps; Z98.1 Arthrodesis status; Z95.828 Presence of other vascular implants and grafts; Z82.49 Family history of ischemic heart disease and other diseases of the circulatory system; Z80.0 Family history of malignant neoplasm of digestive organs
CPT/HCPCS: 27447; 97161; 64448; 76942; 88305; 85025; 88311; 73560; G0378 ×2; C1713; C1776; J2250; J1100; J2175; J0690 ×3; J2405; J3010; J1170; J2795

== ENCOUNTER → 2023-10-19 | Outpatient (CLI) | payer OTHER ==
--- NOTE | 2023-10-20 13:06 | MR ---
EXAMINATION TYPE: MR lumbar spine wo/w con DATE OF EXAM: 10/19/2023 6:39 PM CLINICAL INDICATION:Male, 67 years old with history of [id number] INTVRT DISC DISORDERS W RADICULOPATHY; P HH, Low back pain, unbalanced COMPARISON: None TECHNIQUE: Multi planar, multi sequence imaging was performed utilizing: T1-weighted, T2-weighted, a nd turbo inversion recovery imaging of the lumbar spine. IV Contrast: 12 cc Gadavist. (None if empty) FINDINGS: Alignment: The lumbar vertebral bodies have preserved heights and alignment. Cord: The conus medullaris and the distal spinal cord appear unremarkable with regards to their signa l intensity and morphology. No abnormal postcontrast enhancement. Bones/Discs: Minimal disc degeneration changes worse at L5-S1 with disc space narrowing, osteophytes and Modic endplate changes. Abnormal reactive inversion recovery signal along the L5-S1's adjoining e ndplates. Multilevel disc desiccation is present. No abnormal postcontrast enhancement. T12-L1: No evidence of significant spinal canal stenosis or neural foraminal stenosis. L1-L2: Disc bulge and facet joint arthropathy result in mild spinal canal and mild bilateral neural f oraminal stenosis. L2-L3: Disc bulge and facet joint arthropathy result in mild spinal canal and mild bilateral neural f oraminal stenosis. L3-L4: Disc bulge and facet joint arthropathy result in mild spinal canal and moderate bilateral neur al foraminal stenosis. L4-L5: Disc bulge and facet joint arthropathy result in mild spinal canal and moderate bilateral neur al foraminal stenosis. L5-S1: The disc is rounded posterior morphology with mild spinal canal stenosis. Facet joint arthropa thy with severe right and moderate severe left neural foraminal stenosis. No significant spinal canal or neural foraminal stenosis in the remainder of the visualized levels. Other findings: None. IMPRESSION: Moderate to severe degeneration changes of the spine with neural foraminal stenosis worse at L5-S1 wi th severe right and moderate to severe left. No evidence for significant spinal canal stenosis or abn ormal postcontrast enhancement. The
== END | disposition home or self-care (01) ==
LOC: RADMRIMAIN 17:17
PROVIDERS: ATTEND Orthopaedic Surgery Orthopaedic Surgery of the Spine
DX: M51.17 Intervertebral disc disorders with radiculopathy, lumbosacral region (principal); M99.74 Connective tissue and disc stenosis of intervertebral foramina of sacral region; M47.26 Other spondylosis with radiculopathy, lumbar region; M48.07 Spinal stenosis, lumbosacral region; M16.11 Unilateral primary osteoarthritis, right hip; C61 Malignant neoplasm of prostate; D17.0 Benign lipomatous neoplasm of skin and subcutaneous tissue of head, face and neck; I10 Essential (primary) hypertension; E55.9 Vitamin D deficiency, unspecified; R29.2 Abnormal reflex; R26.89 Other abnormalities of gait and mobility
CPT/HCPCS: 72158; A9585